=== PATIENT | female | born 1980 | race Caucasian/White ===

== ENCOUNTER 2020-07-31 08:45 | Outpatient (REF) | payer MEDICAID, SELFPAY ==
--- NOTE | 2020-07-31 | US_ITS ---
EXAMINATION: US OBSTETRICAL CLINICAL INFORMATION: 40-year-old at 19.0 weeks of gestation AMA Suspected anomaly COMPARISON: 07/02/2020 TECHNIQUE: Real-time transabdominal ultrasound was performed using C1-5 megahertz transducer. FINDINGS: A single, active, fetus is seen in transverse presentation. The placenta is anterior without previa, and the amniotic fluid volume is wnl. MEASUREMENTS: 1. Biparietal Diameter: 4.1 cm; 18.4 wks 2. Occipital Frontal Diameter: 5.5 cm 3. Head Circumference: 15.8 cm; 18.5 wks 4. Abdominal Circumference: 12.96 cm; 18.4 wks 5. Femur Length: 2.94 cm; 19.1 wks 6. Humerus Length: 2.79 cm; 19.0 wks 7. Tibia Length: 2.6 cm; 19.1 wks 8. Ulna Length: 2.65 cm; 19.5 wks 9. Lateral ventricle: 0.7 cm 10. Cerebellum: 1.99 cm; 20.2 wks 11. Cisterna Magna: 0.46 cm 12. Nuchal Fold: 3.16 mm 13. Heart Rate: 160 beats per minute Rt ovary: Unable to visualize Lt ovary: normal Cervical length 4.4 cm on T/A. GESTATIONAL AGE: 1. Established GA: 19.0 wks 2. GA from [facility]: 18.6 wks ESTIMATED DATE OF DELIVERY: 1. Established JOVANA: 12/25/2020 2. JOVANA from [facility]: 12/26/2020 ANATOMY: The visualized anatomy includes but not limited to: 1. Cranium: Normal 2. Intracranial anatomy: cavum septum pellucidi, lateral ventricles, choroid plexus, cerebellum, posterior fossa, third and fourth ventricles. 3. face: orbits, lip/palate, profile, nasal bone 4. Heart: four-chamber view of the heart, ventricular septum, foramen ovale, pulmonary vein, left and right outflow tracts, three-vessel view, 3 vessel trachea view, aortic and ductal arches, situs.. 5. Diaphragm: Normal 6. Abdominal wall: Normal 7. Cord Insertion: Normal 8. Spine: Cervical, thoracic, lumbar, sacral. 9. Stomach: Normal size and shape 10. Right Kidney: Normal 11. Left Kidney: Normal 12. 3 vessel cord: Normal 13. Upper extremity: Open hands, fifth digit. 14. Lower extremity: Tibia, fibula, bilateral feet. 15. Bladder: Normal 16. Genitalia: Male, patient aware IMPRESSION: 1. Single, living, intrauterine with appropriate biometry. 2. Normal survey DISCUSSION: I reviewed today's ultrasound findings. We discussed the limitations of ultrasound in diagnosing aneuploidy and other congenital abnormalities. I reviewed the differences between screening test and diagnostic test. Amniocentesis was discussed and declined. She was informed that the baseline incidence of congenital abnormalities is approximately 3-5%. Not all these conditions are diagnosable in utero. RECOMMENDATIONS: Thank you for allowing me to participate in her care. Visiting time 25 minutes. Majority of this visit was spent reviewing and discussing her care.
== END 2020-07-31 08:46 | disposition home or self-care (01) ==
LOC: HO.US 08:45
PROVIDERS: PCP Internal Medicine; Visit Provider Advanced Practice Midwife
DX: Z34.82 Encounter for supervision of other normal pregnancy, second trimester (principal)
CPT/HCPCS: 76811

== ENCOUNTER → 2020-08-03 08:52 | Outpatient (BNVA) | payer MEDICAID, SELFPAY | PROVIDERS: Visit Provider Advanced Practice Midwife | DX: Z76.89 Persons encountering health services in other specified circumstances (principal) ==

== ENCOUNTER → 2020-08-31 09:02 | Outpatient (BNVA) | payer MEDICAID, SELFPAY | PROVIDERS: Visit Provider Advanced Practice Midwife | DX: Z76.89 Persons encountering health services in other specified circumstances (principal) ==

== ENCOUNTER → 2020-09-07 09:38 | Outpatient (BNVA) | payer MEDICAID, SELFPAY | PROVIDERS: Visit Provider Advanced Practice Midwife | DX: Z23 Encounter for immunization (principal) | CPT/HCPCS: 90686 ==

== ENCOUNTER 2020-09-14 08:47 | Outpatient (REF) | payer MEDICAID, SELFPAY ==
[2020-09-14 12:01] LABS: Hematocrit 32.5 % (37-47); Hemoglobin 10.8 g/dl (12.0-16.0); Mean Corpuscular HGB Conc 33.2 g/dl (31.0-35.0); Mean Corpuscular Hemoglobin 30.8 pg (27.0-33.0); Mean Corpuscular Volume 92.6 fL (80-98); Mean Platelet Volume 10.1 fL (9.4-12.3); Platelet Count 186 X10*3/uL (160-400); Red Blood Count 3.51 X10*6/uL (4.20-5.50); Red Cell Distribution Width 13.4 % (11.0-16.0); White Blood Count 10.9 X10*3/uL (4.8-10.8)
[2020-09-14 12:30] LABS: Glucose 1 Hour PP 50gm Dose 145 mg/dL (60-140)
[2020-09-14 12:39] LABS: HIV AB/AG Nonreactive (Nonreactive); HIV Num 1 0.13 S/CO (0.00-0.99)
[2020-09-14 12:45] LABS: Syphilis Screen Nonreactive (Nonreactive)
[2020-09-14 14:02] LABS: CT PCR NOT DETECTED (Not Detect.); NG PCR NOT DETECTED (Not Detect.)
== END 2020-09-14 08:48 | disposition home or self-care (01) ==
LOC: HO.LAB 08:47
PROVIDERS: PCP Internal Medicine; Visit Provider Advanced Practice Midwife
DX: Z34.80 Encounter for supervision of other normal pregnancy, unspecified trimester (principal)
CPT/HCPCS: 36415; 85027; 86780; 87389; 87491; 87591

== ENCOUNTER 2020-09-17 08:41 | Outpatient (REF) | payer MEDICAID, SELFPAY ==
[2020-09-17 10:19] LABS: Glucose Fasting 72 mg/dL (60-99)
[2020-09-17 10:57] LABS: Glucose 1 Hour 194 mg/dL
[2020-09-17 12:20] LABS: Glucose 2 Hour 204 mg/dL
[2020-09-17 12:54] LABS: Glucose 3 Hour 148 mg/dL
== END 2020-09-17 08:42 | disposition home or self-care (01) ==
LOC: HO.LAB 08:41
PROVIDERS: Visit Provider Advanced Practice Midwife
DX: O99.810 Abnormal glucose complicating pregnancy (principal); O09.519 Supervision of elderly primigravida, unspecified trimester; Z3A.00 Weeks of gestation of pregnancy not specified
CPT/HCPCS: 82951

== ENCOUNTER → 2020-09-18 11:37 | Outpatient (BNVA) | payer MEDICAID, SELFPAY | PROVIDERS: Visit Provider Advanced Practice Midwife | DX: Z76.89 Persons encountering health services in other specified circumstances (principal) ==

== ENCOUNTER → 2020-09-28 09:41 | Outpatient (BNVA) | payer MEDICAID, SELFPAY | PROVIDERS: Visit Provider Advanced Practice Midwife | DX: Z76.89 Persons encountering health services in other specified circumstances (principal) ==

== ENCOUNTER → 2020-10-12 09:38 | Outpatient (BNVA) | payer MEDICAID, SELFPAY | PROVIDERS: Visit Provider Advanced Practice Midwife | DX: O09.523 Supervision of elderly multigravida, third trimester (principal); Z3A.29 29 weeks gestation of pregnancy | CPT/HCPCS: 81003; 99212 ==

== ENCOUNTER → 2020-10-26 08:46 | Outpatient (BNVA) | payer MEDICAID, SELFPAY | PROVIDERS: Visit Provider Advanced Practice Midwife | DX: O24.419 Gestational diabetes mellitus in pregnancy, unspecified control (principal); O26.843 Uterine size-date discrepancy, third trimester | CPT/HCPCS: 81003; 99212 ==

== ENCOUNTER 2020-10-30 11:09 | Outpatient (REF) | payer MEDICAID, SELFPAY ==
--- NOTE | 2020-10-30 11:15 | US_ITS ---
EXAMINATION: OBSTETRICAL ULTRASOUND, Follow up HISTORY: 40-year-old at the 32.0 weeks of gestation AMA GDM A1 Size date discrepancy COMPARISON: 07/31/2020 TECHNIQUE: Real time transabdominal imaging with color and M-mode Doppler. PRESENTATION: Breech PLACENTA LOCATION: Anterior without previa AMNIOTIC FLUID: MAVERICK 17.6 MEASUREMENTS: 1. Biparietal Diameter: 8.1 cm; 32.5 wks 2. Head Circumference: 30.3 cm; 33.5 wks 3. Abdominal Circumference: 26.7 cm; 30.6 wks 4. Femur Length: 6.2 cm; 32.2 wks 5. Heart Rate: 149 beats per minute WEIGHT: EFW: 1806 grams (4 lbs 0 oz) -- 28 %. BIOPHYSICAL PROFILE: Motion: 2 Tone: 2 Breathin Amniotic Fluid: 2 Total score: 8/8 GESTATIONAL AGE: 1. Established GA: 32.0 wks 2. GA from [facility]: 32.3 wks ESTIMATED DATE OF DELIVERY: 1. Established JOVANA: 12/25/2020 2. JOVANA from [facility]: 12/22/2020 US/US OB follow up IMPRESSION: 1. A single active fetus is in breech presentation 2. Size equals dates 3. Reassuring biophysical profile I reviewed the ultrasound findings and gave her reassurance. The discussed the limitations of ultrasound and estimating weights. She reports the normal glucose control on diet. Her fastings are below 97. Majority of her postprandial values are less than 110. We reviewed the increased incidence of macrosomia and hypoglycemia with the suboptimally controlled maternal serum glucose. Continue weekly testing for AMA. Thank you very much for this referral. Visiting time 30 minutes. (6,17, 7)
== END 2020-10-30 11:10 | disposition home or self-care (01) ==
LOC: HO.US 11:09
PROVIDERS: Visit Provider Advanced Practice Midwife
DX: O26.843 Uterine size-date discrepancy, third trimester (principal); O24.419 Gestational diabetes mellitus in pregnancy, unspecified control; O09.523 Supervision of elderly multigravida, third trimester; Z3A.32 32 weeks gestation of pregnancy
CPT/HCPCS: 76816

== ENCOUNTER → 2020-11-03 10:31 | Outpatient (BNVA) | payer MEDICAID, SELFPAY | PROVIDERS: Visit Provider Advanced Practice Midwife | DX: O09.899 Supervision of other high risk pregnancies, unspecified trimester (principal); O36.8390 Maternal care for abnormalities of the fetal heart rate or rhythm, unspecified trimester, not applicable or unspecified | CPT/HCPCS: 59025; 81003; 99212 ==

== ENCOUNTER 2020-11-03 11:28 | Outpatient (REF) | payer MEDICAID, SELFPAY ==
--- NOTE | 2020-11-03 11:32 | US_ITS ---
EXAMINATION: US OBSTETRICAL (BIOPHYSICAL PROFILE) CLINICAL INFORMATION: Deceleration on NST. Gestational diabetes. COMPARISON: Obstetrical ultrasound 10/30/2020, 07/31/2020 TECHNIQUE: Ultrasound of the pelvis is performed. Biophysical profile is performed over 30 minutes with assessment of breathing, gross body movement, tone, and qualitative amniotic fluid volume. Each matrix is scored 0 or 2, depending if the metric is present. Maximum total score possible is 8. Examination is not intended to assess for anomalies. FINDINGS: POSITION: Cephalic PLACENTA: Anterior AMNIOTIC FLUID INDEX: 13.8 cm CARDIAC ACTIVITY: 129 beats per minute BIOPHYSICAL PROFILE: Motion: 2 Tone: 2 Breathin Amniotic Fluid: 2 Total score: 8 US/US OB biophysical profile IMPRESSION: 1. Single intrauterine gestation in cephalic position with anterior placenta. 2. Total biophysical score is 8 (scale 0-8). 3. Amniotic fluid index 13.8 cm. 4. cardiac activity 129 beats per minute.
== END 2020-11-03 11:29 | disposition home or self-care (01) ==
LOC: HO.US 11:28
PROVIDERS: Visit Provider Advanced Practice Midwife
DX: O09.899 Supervision of other high risk pregnancies, unspecified trimester (principal)
CPT/HCPCS: 76819

== ENCOUNTER 2020-11-06 09:23 | Outpatient (REF) | payer MEDICAID, SELFPAY ==
--- NOTE | 2020-11-06 09:26 | US_ITS ---
EXAMINATION: US OBSTETRICAL (BIOPHYSICAL PROFILE) CLINICAL INFORMATION: 40-year-old at 33.0 weeks of gestation AMA GDM A1 COMPARISON: 11/03/2020 TECHNIQUE: Biophysical profile is performed over 30 minutes with assessment of breathing, gross body movement, tone, and qualitative amniotic fluid volume. FINDINGS: POSITION: Cephalic PLACENTA: Anterior without previa AMNIOTIC FLUID INDEX: 15.1 cm CARDIAC ACTIVITY: 143 beats per minute BIOPHYSICAL PROFILE: Motion: 2 Tone: 2 Breathin Amniotic Fluid: 2 The total biophysical score is 8/8 US/US OB biophysical profile IMPRESSION: 1. Single intrauterine gestation in vertex position. 2. Reassuring BPP and MAVERICK Patient informs me that her fasting values are in the 80s. Her highest post prandial value was 160 but majority are in the 110-120 range. She is to continue weekly testing. Thank you for allowing me to participate in her care. Total time: 15 (3,5,7)
== END 2020-11-06 09:24 | disposition home or self-care (01) ==
LOC: HO.US 09:23
PROVIDERS: Visit Provider Advanced Practice Midwife
DX: O09.523 Supervision of elderly multigravida, third trimester (principal); O24.419 Gestational diabetes mellitus in pregnancy, unspecified control; Z3A.33 33 weeks gestation of pregnancy
CPT/HCPCS: 76819

== ENCOUNTER → 2020-11-10 10:44 | Outpatient (BNVA) | payer MEDICAID, SELFPAY | PROVIDERS: Visit Provider Obstetrics & Gynecology | DX: O09.523 Supervision of elderly multigravida, third trimester (principal) | CPT/HCPCS: 59025; 76819; 99212 ==

== ENCOUNTER 2020-11-10 12:19 | Outpatient (REF) | payer MEDICAID, SELFPAY ==
--- NOTE | 2020-11-10 12:22 | US_ITS ---
EXAMINATION: US OBSTETRICAL (BIOPHYSICAL PROFILE) CLINICAL INFORMATION: O99.810 - Abnormal glucose complicating . Gestation approximately 33 weeks. COMPARISON: Ultrasound biophysical profile 11/06/2020, 11/03/2020 TECHNIQUE: Ultrasound of the pelvis is performed. Biophysical profile is performed over 30 minutes with assessment of breathing, gross body movement, tone, and qualitative amniotic fluid volume. Each matrix is scored 0 or 2, depending if the metric is present. Maximum total score possible is 8. Examination is not intended to assess for anomalies. FINDINGS: POSITION: Cephalic PLACENTA: Anterior AMNIOTIC FLUID INDEX: 17.3 cm CARDIAC ACTIVITY: 144 beats per minute BIOPHYSICAL PROFILE: Motion: 2 Tone: 2 Breathin Amniotic Fluid: 2 Total score: 8 US/US OB biophysical profile IMPRESSION: 1. Single intrauterine gestation in cephalic position with anterior placenta. 2. Total biophysical score is 8 (scale 0-8). 3. Amniotic fluid index 17.3 cm. 4. cardiac activity 144 beats per minute.
== END 2020-11-10 12:20 | disposition home or self-care (01) ==
LOC: HO.US 12:19
PROVIDERS: Visit Provider Obstetrics & Gynecology
DX: O09.529 Supervision of elderly multigravida, unspecified trimester (principal); O24.419 Gestational diabetes mellitus in pregnancy, unspecified control; O09.899 Supervision of other high risk pregnancies, unspecified trimester
CPT/HCPCS: 76819

== ENCOUNTER 2020-11-13 09:25 | Outpatient (REF) | payer MEDICAID, SELFPAY ==
--- NOTE | 2020-11-13 09:28 | US_ITS ---
EXAMINATION: US OBSTETRICAL (BIOPHYSICAL PROFILE) CLINICAL INFORMATION: 40-year-old at the 34.0 weeks of gestation AMA GDM A1 COMPARISON: 11/10/2020 TECHNIQUE: Biophysical profile is performed over 30 minutes with assessment of breathing, gross body movement, tone, and qualitative amniotic fluid volume. FINDINGS: POSITION: Cephalic PLACENTA: Anterior AMNIOTIC FLUID INDEX: 16.8 cm CARDIAC ACTIVITY: 147 beats per minute BIOPHYSICAL PROFILE: Motion: 2 Tone: 2 Breathin Amniotic Fluid: 2 The total biophysical score is 8/8 US/US OB biophysical profile IMPRESSION: 1. Single intrauterine gestation in vertex position. 2. Reassuring BPP and MAVERICK Patient reports that her glycemic control is excellent on her current diet. She is to continue weekly testing. Thank you for allowing me to participate in her care.
== END 2020-11-13 09:26 | disposition home or self-care (01) ==
LOC: HO.US 09:25
PROVIDERS: Visit Provider Advanced Practice Midwife
DX: O24.419 Gestational diabetes mellitus in pregnancy, unspecified control (principal); O09.523 Supervision of elderly multigravida, third trimester; Z3A.34 34 weeks gestation of pregnancy
CPT/HCPCS: 76819

== ENCOUNTER → 2020-11-17 12:50 | Outpatient (BNVA) | payer MEDICAID, SELFPAY | PROVIDERS: Visit Provider Advanced Practice Midwife | DX: O24.419 Gestational diabetes mellitus in pregnancy, unspecified control (principal) | CPT/HCPCS: 59025; 99212 ==

== ENCOUNTER 2020-11-20 09:25 | Outpatient (REF) | payer MEDICAID, SELFPAY ==
--- NOTE | ~2020-11-20 | US_ITS ---
EXAMINATION: OBSTETRICAL ULTRASOUND, Follow up HISTORY: 40-year-old at the 35.0 weeks of gestation Gestational diabetes on metformin Size date discrepancy testing COMPARISON: 11/13/2020 TECHNIQUE: Real time transabdominal imaging with color and M-mode Doppler. PRESENTATION: Vertex PLACENTA LOCATION: Anterior without previa AMNIOTIC FLUID: MAVERICK 12.5 cm MEASUREMENTS: 1. Biparietal Diameter: 8.6 cm; 34.6 wks 2. Head Circumference: 31.5 cm; 35.3 wks 3. Abdominal Circumference: 31.0 cm; 35.0 wks 4. Femur Length: 6.74 cm; 34.5 wks 5. Heart Rate: 143 beats per minute WEIGHT: EFW: 2565 grams (5 lbs 10 oz) -- 46 %. BIOPHYSICAL PROFILE: Motion: 2 Tone: 2 Breathin Amniotic Fluid: 2 Total score: 8/8 GESTATIONAL AGE: 1. Established GA: 35.0 wks 2. GA from [facility]: 35.0 wks ESTIMATED DATE OF DELIVERY: 1. Established JOVANA: 12/25/2020 2. JOVANA from [facility]: 12/25/2020 US/US OB follow up IMPRESSION: 1. A single active fetus is in vertex presentation 2. Size equals dates 3. Reassuring biophysical profile with normal amniotic fluid index. She informs me that the she is currently on metformin 500 mg by mouth every morning. Her glycemic control continues to be excellent. I reassured her that there is no evidence of macrosomia or polyhydramnios. I reviewed the clinical consequences of the poorly controlled maternal serum glucose in . She is scheduled for weekly NST/BPP. Thank you very much for this referral. Visiting time 30 minutes. Majority of this visit was spent reviewing and coordinating her care.
== END 2020-11-20 09:26 | disposition home or self-care (01) ==
LOC: HO.US 09:25
PROVIDERS: Visit Provider Advanced Practice Midwife
DX: O24.419 Gestational diabetes mellitus in pregnancy, unspecified control (principal); O09.519 Supervision of elderly primigravida, unspecified trimester
CPT/HCPCS: 76816

== ENCOUNTER → 2020-11-24 13:53 | Outpatient (BNVA) | payer MEDICAID, SELFPAY | PROVIDERS: Visit Provider Obstetrics & Gynecology | DX: O24.419 Gestational diabetes mellitus in pregnancy, unspecified control (principal) | CPT/HCPCS: 59025; 81003; 99212 ==

== ENCOUNTER 2020-11-27 09:49 | Outpatient (REF) | payer MEDICAID, SELFPAY ==
--- NOTE | ~2020-11-27 | US_ITS ---
EXAMINATION: US OBSTETRICAL (BIOPHYSICAL PROFILE) CLINICAL INFORMATION: 40-year-old at 36.0 weeks of gestation Gestational diabetes on metformin testing AMA COMPARISON: 11/20/2020 TECHNIQUE: Biophysical profile is performed over 30 minutes with assessment of breathing, gross body movement, tone, and qualitative amniotic fluid volume. FINDINGS: POSITION: Cephalic PLACENTA: Anterior without previa AMNIOTIC FLUID INDEX: 13.5 cm CARDIAC ACTIVITY: 132 beats per minute BIOPHYSICAL PROFILE: Motion: 2 Tone: 2 Breathin Amniotic Fluid: 2 The total biophysical score is 8/8 US/US OB biophysical profile IMPRESSION: 1. Single intrauterine gestation in vertex position. 2. Reassuring BPP and MAVERICK Patient reports that her glycemic control is the excellent. She is to continue weekly testing. Thank you for allowing me to participate in her care.
== END 2020-11-27 09:50 | disposition home or self-care (01) ==
LOC: HO.US 09:49
PROVIDERS: Visit Provider Advanced Practice Midwife
DX: O24.415 Gestational diabetes mellitus in pregnancy, controlled by oral hypoglycemic drugs (principal); O09.513 Supervision of elderly primigravida, third trimester; Z3A.36 36 weeks gestation of pregnancy
CPT/HCPCS: 76819

== ENCOUNTER 2020-12-02 12:44 | Outpatient (REF) | payer MEDICAID, SELFPAY ==
[2020-12-04 14:56] LABS: C. trachomatis RNA TMA NOT DETECTED (NOT DETECTED); N. gonorrhoeae RNA TMA NOT DETECTED (NOT DETECTED)
== END 2020-12-02 12:45 | disposition home or self-care (01) ==
LOC: HO.LAB 12:44
PROVIDERS: Visit Provider Advanced Practice Midwife
DX: O09.893 Supervision of other high risk pregnancies, third trimester (principal); O09.523 Supervision of elderly multigravida, third trimester; O24.415 Gestational diabetes mellitus in pregnancy, controlled by oral hypoglycemic drugs; O36.8330 Maternal care for abnormalities of the fetal heart rate or rhythm, third trimester, not applicable or unspecified; Z3A.36 36 weeks gestation of pregnancy
CPT/HCPCS: 36415; 59025; 76819; 81003; 87081; 87147; 87491; 87591; 99212

== ENCOUNTER 2020-12-02 14:32 | Outpatient (REF) | payer MEDICAID, SELFPAY ==
--- NOTE | ~2020-12-02 | US_ITS ---
EXAMINATION: US OBSTETRICAL (BIOPHYSICAL PROFILE) CLINICAL INFORMATION: Maternal gestational diabetes. Gestation 36 weeks 5 days. COMPARISON: Ultrasound biophysical profile 11/27/2020, 11/20/2020, 11/13/2020. TECHNIQUE: Ultrasound of the pelvis is performed. Biophysical profile is performed over 30 minutes with assessment of breathing, gross body movement, tone, and qualitative amniotic fluid volume. Each matrix is scored 0 or 2, depending if the metric is present. Maximum total score possible is 8. Examination is not intended to assess for anomalies. FINDINGS: POSITION: Cephalic PLACENTA: Anterior AMNIOTIC FLUID INDEX: 15.2 cm CARDIAC ACTIVITY: 144 beats per minute BIOPHYSICAL PROFILE: Motion: 2 Tone: 2 Breathin Amniotic Fluid: 2 Total score: 8 US/US OB biophysical profile IMPRESSION: 1. Single intrauterine gestation in cephalic position with anterior placenta. 2. Total biophysical score is 8 (scale 0-8). 3. Amniotic fluid index 15.2 cm. 4. cardiac activity 144 beats per minute.
== END 2020-12-02 14:33 | disposition home or self-care (01) ==
LOC: HO.US 14:32
PROVIDERS: Visit Provider Advanced Practice Midwife
DX: O09.529 Supervision of elderly multigravida, unspecified trimester (principal); O09.899 Supervision of other high risk pregnancies, unspecified trimester; O24.415 Gestational diabetes mellitus in pregnancy, controlled by oral hypoglycemic drugs; O36.8390 Maternal care for abnormalities of the fetal heart rate or rhythm, unspecified trimester, not applicable or unspecified
CPT/HCPCS: 76819

== ENCOUNTER 2020-12-04 09:49 | Outpatient (REF) | payer MEDICAID, SELFPAY ==
--- NOTE | ~2020-12-04 | US_ITS ---
EXAMINATION: OBSTETRICAL ULTRASOUND, Follow up HISTORY: 40-year-old at 37.0 weeks GDM on metformin Size date discrepancy AMA COMPARISON: 11/27/2020 TECHNIQUE: Real time transabdominal imaging with color and M-mode Doppler. PRESENTATION: Vertex PLACENTA LOCATION: Anterior without previa AMNIOTIC FLUID: MAVERICK 11.9 cm MEASUREMENTS: 1. Biparietal Diameter: 9.11 cm; 37.0 wks 2. Head Circumference: 33.5 cm; 38.3 wks 3. Abdominal Circumference: 34.39 cm; 38.3 wks 4. Femur Length: 7.22 cm; 37.0 wks 5. Heart Rate: 142 beats per minute WEIGHT: EFW: 3322 grams (7 lbs 5 oz) -- 78 %. BIOPHYSICAL PROFILE: Motion: 2 Tone: 2 Breathin Amniotic Fluid: 2 Total score: 8/8 GESTATIONAL AGE: 1. Established GA: 37.0 wks 2. GA from [facility]: 37.5 wks ESTIMATED DATE OF DELIVERY: 1. Established JOVANA: 12/25/2020 2. JOVANA from [facility]: 12/20/2020 US/US OB follow up IMPRESSION: 1. A single active fetus is in vertex presentation 2. Size equals dates 3. Reassuring biophysical profile with normal amniotic fluid index Patient reports that her glycemic control is stable on metformin 500 mg q.d. States that she ran out of the glucose strips and was not able to monitor her glucose values last week. Week before, fasting values were in the 70s to 80s. Postprandial values are within normal limits. I reviewed today's ultrasound findings and gave her reassurance. She is to continue weekly BPP and NST. Thank you very much for this referral. Visiting time 25 minutes. Majority of this visit was spent reviewing and coordinating her care.
== END 2020-12-04 09:50 | disposition home or self-care (01) ==
LOC: HO.US 09:49
PROVIDERS: Visit Provider Advanced Practice Midwife
DX: O24.415 Gestational diabetes mellitus in pregnancy, controlled by oral hypoglycemic drugs (principal); O09.513 Supervision of elderly primigravida, third trimester; Z3A.37 37 weeks gestation of pregnancy
CPT/HCPCS: 76816

== ENCOUNTER → 2020-12-08 10:38 | Outpatient (BNVA) | payer MEDICAID, SELFPAY | PROVIDERS: Visit Provider Advanced Practice Midwife | DX: O99.820 Streptococcus B carrier state complicating pregnancy (principal); O24.415 Gestational diabetes mellitus in pregnancy, controlled by oral hypoglycemic drugs; O09.523 Supervision of elderly multigravida, third trimester; O26.843 Uterine size-date discrepancy, third trimester; O99.113 Other diseases of the blood and blood-forming organs and certain disorders involving the immune mechanism complicating pregnancy, third trimester; D69.6 Thrombocytopenia, unspecified; O92.29 Other disorders of breast associated with pregnancy and the puerperium; Z3A.37 37 weeks gestation of pregnancy | CPT/HCPCS: 59025; 81003; 99212 ==

== ENCOUNTER 2020-12-08 11:58 | Outpatient (REF) | payer MEDICAID, SELFPAY ==
--- NOTE | ~2020-12-08 | US_ITS ---
EXAMINATION: US OBSTETRICAL (BIOPHYSICAL PROFILE) CLINICAL INFORMATION: Gestational diabetes COMPARISON: Previous exams most recent 12/04/2020 TECHNIQUE: Ultrasound of the pelvis is performed. Biophysical profile is performed over 30 minutes with assessment of breathing, gross body movement, tone, and qualitative amniotic fluid volume. Each matrix is scored 0 or 2, depending if the metric is present. Maximum total score possible is 8. Examination is not intended to assess for anomalies. FINDINGS: POSITION: Cephalic PLACENTA: Anterior. Grade 1. AMNIOTIC FLUID INDEX: 13.8 cm CARDIAC ACTIVITY: 139 beats per minute BIOPHYSICAL PROFILE: Motion: 2 Tone: 2 Breathin Amniotic Fluid: 2 Total score: 8 US/US OB biophysical profile IMPRESSION: 1. Single intrauterine gestation in cephalic position with anterior placenta. 2. Total biophysical score is 8 (scale 0-8). 3. Amniotic fluid index 13.8 cm. 4. cardiac activity 139 beats per minute.
== END 2020-12-08 11:59 | disposition home or self-care (01) ==
LOC: HO.US 11:58
PROVIDERS: Visit Provider Advanced Practice Midwife
DX: O09.899 Supervision of other high risk pregnancies, unspecified trimester (principal); O09.529 Supervision of elderly multigravida, unspecified trimester; O24.415 Gestational diabetes mellitus in pregnancy, controlled by oral hypoglycemic drugs; O36.8390 Maternal care for abnormalities of the fetal heart rate or rhythm, unspecified trimester, not applicable or unspecified
CPT/HCPCS: 76819

== ENCOUNTER 2020-12-11 09:42 | Outpatient (REF) | payer MEDICAID, SELFPAY ==
--- NOTE | ~2020-12-11 | US_ITS ---
EXAMINATION: US OBSTETRICAL (BIOPHYSICAL PROFILE) CLINICAL INFORMATION: 40-year-old at 38.0 weeks of gestation Gestational diabetes on metformin COMPARISON: 12/08/2020 TECHNIQUE: Biophysical profile is performed over 30 minutes with assessment of breathing, gross body movement, tone, and qualitative amniotic fluid volume. FINDINGS: POSITION: Cephalic PLACENTA: Anterior without previa AMNIOTIC FLUID INDEX: 12.7 cm CARDIAC ACTIVITY: 158 beats per minute BIOPHYSICAL PROFILE: Motion: 2 Tone: 2 Breathin Amniotic Fluid: 2 The total biophysical score is 8/8 US/US OB biophysical profile IMPRESSION: 1. Single intrauterine gestation in vertex position. 2. Reassuring BPP and MAVERICK Patient reports doing well on metformin 500 mg daily at bedtime. Reports that her morning fasting values are in the 80s. Her postprandials are within normal range. She is scheduled for delivery at approximately 39 weeks of gestation. Thank you for allowing me to participate in her care. This note was generated with a voice recognition program. Please excuse any errors which may have been overlooked during my review of this note. Sometimes these errors may affect the content or meaning of a given sentence.
== END 2020-12-11 09:43 | disposition home or self-care (01) ==
LOC: HO.US 09:42
PROVIDERS: Visit Provider Advanced Practice Midwife
DX: O24.415 Gestational diabetes mellitus in pregnancy, controlled by oral hypoglycemic drugs (principal); O09.513 Supervision of elderly primigravida, third trimester; Z3A.38 38 weeks gestation of pregnancy
CPT/HCPCS: 76819

== ENCOUNTER → 2020-12-15 10:44 | Outpatient (BNVA) | payer MEDICAID, SELFPAY | PROVIDERS: Visit Provider Advanced Practice Midwife | DX: O24.415 Gestational diabetes mellitus in pregnancy, controlled by oral hypoglycemic drugs (principal); O99.820 Streptococcus B carrier state complicating pregnancy; O09.523 Supervision of elderly multigravida, third trimester; Z3A.38 38 weeks gestation of pregnancy | CPT/HCPCS: 59025; 81003; 99212 ==

== ENCOUNTER 2021-01-18 11:30 | Outpatient (REF) | payer MEDICAID, SELFPAY ==
--- NOTE | ~2021-01-18 | US_ITS ---
EXAMINATION: US DIAGNOSTIC ULTRASOUND BREAST, LEFT CLINICAL INFORMATION: Follow-up hypoechoic mass left breast 11:00 position initially noted at baseline screening. Patient approximately one month . COMPARISON: Mammography 12/12/2019, 12/19/2019; targeted left breast ultrasound 12/19/2019 and 07/02/2020. TECHNIQUE: Ultrasound left breast is targeted to the 11:00 position anterior breast. Grayscale imaging and color Doppler are performed without and with harmonics. FINDINGS: There is an irregular shaped strongly hypoechoic mass 11:00 position 2 cm from nipple with overall dimensions approximately 1.4 x 1.0 x 1.2 cm. This compares with original measurements 1.1 x 0.5 x 0.8 cm. There is no increased through-transmission of sound. There is some scattered faint posterior shadowing suggested on some of the images. Results are discussed with patient at time of visit. Ultrasound-guided core sampling is recommended. Patient is currently breast feeding, approximately 1 month post . Patient was advised to pump breast 30 minutes prior to biopsy appointment. US/US breast LT limited IMPRESSION: Irregular shaped hypoechoic mass 11:00 position anterior left breast slightly increased in size from initial ultrasound 12/19/2019. ASSESSMENT: BI-RADS 4: Suspicious RECOMMENDATION: Ultrasound-guided core biopsy left breast.
== END 2021-01-18 11:31 | disposition home or self-care (01) ==
LOC: HO.MAMMO 11:30
PROVIDERS: Visit Provider Advanced Practice Midwife
DX: N63.24 Unspecified lump in the left breast, lower inner quadrant (principal); Z39.2 Encounter for routine postpartum follow-up
CPT/HCPCS: 76642

== ENCOUNTER 2021-01-26 09:05 | Outpatient (REF) | payer MEDICAID, SELFPAY ==
--- NOTE | ~2021-01-26 | MM_ITS ---
EXAMINATION: ULTRASOUND GUIDED CORE BIOPSY BREAST, LEFT POST PROCEDURE DIGITAL MAMMOGRAM, LEFT CLINICAL INFORMATION: Irregular shaped hypoechoic mass 11:00 anterior left breast. Lactating patient, 1-2 months post .. COMPARISON: Ultrasound left breast 01/18/2021, 07/02/2020, 12/19/2019; mammography 12/19/2019, 12/12/2019. FINDINGS: Proper informed consent is obtained from the patient after discussion of the procedure, potential risks and complications, and alternatives. Patient was given an opportunity for questions. The patient appeared to understand. The patient consented to the procedure and signed the consent form. GUIDANCE: Ultrasound-guided; aseptic technique. LESION: Irregular hypoechoic mass 11:00 position 1.4 cm in greatest dimension. Differential considerations include lactating adenoma, fibroadenoma, PASH, other. APPROACH: Oblique mediolateral. ANESTHESIA: 10 mL 1% lidocaine. DERMATOTOMY: Single skin jose m dermatotomy performed. NEEDLE: 14-gauge Achieve core biopsy device with 13.5-gauge co-axial guide needle. CORES: 4. CLIP: HydroMARK; shape: open coil. POST PROCEDURE UNILATERAL DIGITAL MAMMOGRAM: The post biopsy mammogram is performed in separate room using separate digital mammography equipment from the biopsy procedure. CC and ML views are obtained. The breasts are heterogeneously dense, which may obscure small masses (breast composition category: c). The clip marker is in position. No gross hematoma. The patient tolerated the procedure well. No immediate complications. Home instructions reviewed with the patient. Patient advised for additional left breast pumping next 24 hours to decrease possibility of post procedure milk fistula. Final pathology results are pending. MM/MM diagnostic mammo unilat LT IMPRESSION: 1. Status post ultrasound-guided core biopsy left breast. 2. Clip placed: HydroMARK; shape: open coil. 3. Pathology pending. An addendum report will be issued.
== END 2021-01-26 09:06 | disposition home or self-care (01) ==
LOC: HO.MAMMO 09:05
PROVIDERS: Visit Provider Surgery
DX: R92.8 Other abnormal and inconclusive findings on diagnostic imaging of breast (principal)
CPT/HCPCS: 19083; 77065; 88305; 99202; A4648

== ENCOUNTER → 2021-01-29 10:47 | Outpatient (BNVA) | payer MEDICAID, SELFPAY | PROVIDERS: PCP Internal Medicine; Visit Provider Surgery | DX: D48.60 Neoplasm of uncertain behavior of unspecified breast (principal) | CPT/HCPCS: 99212 ==

== ENCOUNTER → 2021-02-11 09:10 | Outpatient (BNVA) | payer MEDICAID, SELFPAY | PROVIDERS: PCP Internal Medicine; Visit Provider Advanced Practice Midwife | DX: Z39.2 Encounter for routine postpartum follow-up (principal); Z13.31 Encounter for screening for depression; Z39.1 Encounter for care and examination of lactating mother | CPT/HCPCS: 99212 ==

== ENCOUNTER 2021-08-16 10:39 | Outpatient (REF) | payer MEDICAID, SELFPAY ==
[2021-08-17 11:10] LABS: BV Int Neg Control Negative (Negative); BV Int Pos Control Positive (Positive)
== END 2021-08-16 10:40 | disposition home or self-care (01) ==
LOC: HO.LAB 10:39
PROVIDERS: PCP Internal Medicine; Visit Provider Advanced Practice Midwife
DX: Z11.3 Encounter for screening for infections with a predominantly sexual mode of transmission (principal); N76.0 Acute vaginitis
CPT/HCPCS: 87480; 87510; 87660; 99212

== ENCOUNTER 2022-04-07 10:20 | Outpatient (REF) | payer MEDICAID, SELFPAY ==
[2022-04-07 14:02] LABS: CT PCR NOT DETECTED (Not Detect.); NG PCR NOT DETECTED (Not Detect.)
[2022-04-08 09:16] LABS: BV Int Neg Control Negative (Negative); BV Int Pos Control Positive (Positive)
== END 2022-04-07 10:21 | disposition home or self-care (01) ==
LOC: HO.LAB 10:20
PROVIDERS: Visit Provider Advanced Practice Midwife
DX: Z01.419 Encounter for gynecological examination (general) (routine) without abnormal findings (principal); Z11.3 Encounter for screening for infections with a predominantly sexual mode of transmission
CPT/HCPCS: 87480; 87491; 87510; 87591; 87660

== ENCOUNTER 2022-05-16 09:47 | Outpatient (REF) | payer MEDICAID, SELFPAY ==
--- NOTE | ~2022-05-16 | MM_ITS ---
EXAMINATION: MM SCREENING DIGITAL BREAST TOMOSYNTHESIS, BILATERAL CLINICAL INFORMATION: Screening. Asymptomatic. Ultrasound-guided left breast biopsy 01/26/2021 (fibroadenoma lesion, differential diagnosis between fibroadenoma and phylloides). Lactating patient, breast feeds once a day. The lifetime risk of breast cancer based on the Tyrer-Cuzick Model is 11%. COMPARISON: Mammography: 10/28/2020, 12/19/2019, 08/11/2020 (baseline) TECHNIQUE: Digital breast tomosynthesis is performed in both the craniocaudal and mediolateral oblique views along with computer-aided detection (CAD). Synthesized 2D images are generated from the tomosynthesis. Additional left MLO view is provided. FINDINGS: The breasts are heterogeneously dense, which may obscure small masses (ACR BI-RADS breast composition Category c). The breasts are symmetrically dense when compared with prior mammography. There is a biopsy clip marker mid upper inner left breast corresponding to the fibroepithelial lesion. The mass is not clearly visualized by mammography. There is no interval focal parenchymal abnormality. No architectural abnormality. No abnormal calcifications. The axilla and skin contours are unremarkable. Patient due for follow-up appointment with surgeon for management of the fibroepithelial lesion. Excisional biopsy was suggested for complete characterization of the lesion in 2020. If surgery is not contemplated, then follow-up ultrasound to reassess size would be recommended. Results called to nuclear medical technologist (Kari) for Dr. Colunga on 05/17/2022. MM/MM tomosynthesis screening BI IMPRESSION: -Breast symmetrically denser when compared with prior exams. -No focal mammographic abnormality. -Fibroepithelial lesion left breast, biopsy was 01/26/2021, excision was recommended. ASSESSMENT: BI-RADS 0: Incomplete - Need Additional Evaluation RECOMMENDATION: -Surgical consult for management of the known fibroepithelial lesion left breast. -If surgery is not contemplated, then follow-up left breast ultrasound is recommended to reassess size. This patient's information was entered into a reminder system with a target due date for their next breast imaging.
== END 2022-05-16 09:48 | disposition home or self-care (01) ==
LOC: HO.MAMMO 09:47
PROVIDERS: Visit Provider Advanced Practice Midwife
DX: Z12.31 Encounter for screening mammogram for malignant neoplasm of breast (principal)
CPT/HCPCS: 77063; 77067

== ENCOUNTER 2022-07-29 13:01 | Outpatient (REF) | payer MEDICAID, SELFPAY ==
--- NOTE | ~2022-07-29 | US_ITS ---
EXAMINATION: US DIAGNOSTIC ULTRASOUND BREAST, LEFT CLINICAL INFORMATION: Reassess lump. COMPARISON: 05/16/2022 and studies dating back to 12/12/2019. TECHNIQUE: Ultrasound of the breast is performed with real-time bearden scale imaging and color Doppler. FINDINGS: At the 11 o'clock position, 2 cm from the nipple, there is again noted to be a hypoechoic and heterogeneous lesion measuring approximately 7 x 4 x 7 mm in size with a lobular contour. Previously this measured 1.4 x 1.0 x 1.2 cm in size. No distal sound shadowing is appreciated. No significant internal blood flow is seen. Lesion is wider than it is tall. Results are discussed with the patient at time of visit. US/US breast LT limited IMPRESSION: Left breast lesion 11 o'clock position, 2 cm from nipple, is smaller than on prior study. ASSESSMENT: BI-RADS 2: Benign. RECOMMENDATION: Routine annual mammography screening due in 12 months. Clinical follow up of the left breast. This patient's information was entered into a reminder system with a target due date for their next mammogram.
== END 2022-07-29 13:02 | disposition home or self-care (01) ==
LOC: HO.MAMMO 13:01
PROVIDERS: PCP Internal Medicine; Visit Provider Internal Medicine
DX: N63.22 Unspecified lump in the left breast, upper inner quadrant (principal)
CPT/HCPCS: 76642

== ENCOUNTER → 2023-02-10 09:47 | Outpatient (BNVA) | payer MEDICAID, SELFPAY | PROVIDERS: PCP Internal Medicine; Visit Provider Surgery | DX: D24.2 Benign neoplasm of left breast (principal) | CPT/HCPCS: 99212 ==

== ENCOUNTER → 2023-04-11 09:55 | Outpatient (BNVA) | payer MEDICAID, SELFPAY | PROVIDERS: PCP Internal Medicine; Visit Provider Advanced Practice Midwife ==

== ENCOUNTER → 2023-05-30 16:15 | Outpatient (BNV) | payer MEDICAID, SELFPAY | PROVIDERS: PCP Family Medicine; Visit Provider Radiology Diagnostic Radiology | DX: Z12.31 Encounter for screening mammogram for malignant neoplasm of breast (principal) | CPT/HCPCS: 77063; 77067 ==

== ENCOUNTER 2023-05-30 16:23 | Outpatient (REF) | payer MEDICAID, SELFPAY ==
--- NOTE | ~2023-05-30 | MM_ITS ---
EXAMINATION: MM SCREENING DIGITAL BREAST TOMOSYNTHESIS, BILATERAL CLINICAL INFORMATION: Screening. Asymptomatic. COMPARISON: Mammography: This study is compared with prior exams dating back to 2019. TECHNIQUE: Digital breast tomosynthesis is performed in both the craniocaudal and mediolateral oblique views along with computer-aided detection (CAD). Synthesized 2D images are generated from the tomosynthesis. FINDINGS: The breasts are heterogeneously dense, which may obscure small masses (ACR BI-RADS breast composition Category c). There are no significant masses, abnormal calcifications, or other abnormalities. There is a tissue marker present in the left breast from prior benign percutaneous biopsy. MM/MM tomosynthesis screening BI IMPRESSION: No mammographic evidence of malignancy. ASSESSMENT: BI-RADS BI-RADS 2 - Benign Findings RECOMMENDATION: Routine annual mammography screening. 1 year F/U This examination should not preclude the clinical evaluation of a suspicious palpable abnormality. This patient's information was entered into a reminder system with a target due date for their next mammogram.
== END 2023-05-30 16:24 | disposition home or self-care (01) ==
LOC: HO.MAMMO 16:23
PROVIDERS: PCP Family Medicine; Visit Provider Family Medicine
DX: Z12.31 Encounter for screening mammogram for malignant neoplasm of breast (principal)
CPT/HCPCS: 77063; 77067

== ENCOUNTER 2023-08-08 13:57 | Outpatient (AMB) | payer MEDICAID, SELFPAY ==
--- NOTE | 2023-08-08 14:00 | A.OFFVIS_ITS ---
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 Patient reports she was diagnosed with CTS about 2 years ago. She had an understanding that she was ge tting an injection for her right hand. 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 The patient reports she was diagnosed with carpal tunnel syndrome 2 years ago, in 2020. She states she is here for an injection in the right hand. The patient was referred to Orthopedics by her PCP Dr. Marjorie Bradford on 02/28/2023. She was diagnosed with CTS in 2019 after a NCT. She was recommend to brace at night and modify activities. [facility] Medical History Gestational diabetes Lactating mother Lump of left breast Surgical History H/O breast biopsy No history of previous surgery Family History Mother Lung cancer Maternal Grandmother Cancer of unknown origin Paternal Uncle Liver cancer Family/Other Bone cancer Social History Household Members: Spouse and Children Housing: House Alcohol intake: former Patient Tobacco Use Status: Never used Tobacco Sexual orientation: Straight/Heterosexual Gender identity: Female Female Reproductive History Menstrual Age of Menarche: 13 Review of Systems Const All systems reviewed & are unremarkable except as noted in HPI and below Physical Exam Const General: cooperative and no acute distress Orientation/consciousness: patient oriented x3 Resp Effort & Inspection: normal respiratory effort and able to speak in complete sentences Cardio Peripheral pulses: Peripheral pulses 2+ throughout Skin General skin exam: no rashes or lesions noted Neuro General: patient oriented x3 Extrem Other: Right hand: Normal to inspection. No ecchymosis, erythema, or edema. Able to perform full finger flexion, extension, abduction, adduction, finger cross, okay sign, and thumbs up without deficit. Able to make a closed fist. Negative Tinel?s in carpal tunnel and cubital tunnel. Capillary refill is brisk. Radial pulse intact. Assessment & Plan Assessment & Plan (1) Right carpal tunnel syndrome: Code(s): G56.01 - Carpal tunnel syndrome, right upper limb Plan Ms. Hazel is a 41-year-old right hand dominant female who presents in the office today, as a new patient, for an evaluation of right hand pain. The patient reports she was diagnosed with carpal tunnel syndrome 2 years ago, in 2020. She states she is here for an injection in the right hand. The patient was referred to Orthopedics by her PCP Dr. Marjorie Bradford on 02/28/2023. She was diagnosed with CTS in 2019 after a NCT. She was recommend to brace at night and modify activities. The patient will be referred for an EMG study. She reports numbness and tingling on a nightly bases. She also reports having numbness and tingling during the day occasionally and depending on her activities. Follow up will be after the EMG is obtained, or sooner if needed. Orders: Orders NE electromyogram (EMG) Today G56.01 - Carpal tunnel syndrome, right upper limb Patient Instructions: Scribed for Shanti Suggs PA-C by Porsche Triana medical records custodian, on 08/08/2023 at 2:00 pm, EST. Coding Level of Care Code New Pt Level 4 (30998) Diagnoses Right carpal tunnel syndrome G56.01
== END 2023-08-08 14:26 | disposition home or self-care (01) ==
PROVIDERS: PCP Family Medicine; Visit Provider Physician Assistant
DX: G56.01 Carpal tunnel syndrome, right upper limb (principal)
CPT/HCPCS: 99204

== ENCOUNTER → 2023-08-08 13:57 | Outpatient (BNVA) | payer MEDICAID, SELFPAY | PROVIDERS: PCP Family Medicine; Visit Provider Physician Assistant | DX: G56.01 Carpal tunnel syndrome, right upper limb (principal) | CPT/HCPCS: 99202; 99212 ==

== ENCOUNTER 2023-09-06 14:56 | Outpatient (REF) | payer MEDICAID, SELFPAY ==
--- NOTE | 2023-09-06 14:58 | EMG_ITS ---
Chief complaint: Right hand numbness and pain Reason for referral: Evaluate for Carpal Tunnel Syndrome Referred by: Shanti CHEEK Procedure done: Right upper extremity NCS/EMG Precautions and/or limitations: None The limb temperature was monitored continuously and remained between 32-36 degrees C during the performance of the NCS. Nerve Conduction Studies Anti Sensory Summary Table ?Stim Site NR Onset (ms) Norm Onset (ms) Peak (ms) Norm Peak (ms) O-P Amp (?V) Norm O-P Amp Site1 Site2 Delta-0 (ms) Dist (cm) Justin (m/s) Norm Justin (m/s) Right Median Anti Sensory (2nd Digit) Wrist ? 3.8 4.8 <3.6 25.7 >10 Wrist 2nd Digit 3.8 14.0 37 Right Radial Anti Sensory (Thumb) Forearm ? 1.4 2.0 <3.1 46.1 Forearm Thumb 1.4 0.0 Right Ulnar Anti Sensory (5th Digit) Wrist ? 2.3 3.0 <3.7 53.9 >15.0 Wrist 5th Digit 2.3 14.0 61 Motor Summary Table ?Stim Site NR Onset (ms) Norm Onset (ms) O-P Amp (mV) Norm O-P Amp iAmp (mV) Amp (1st) (%) Site1 Site2 Delta-0 (ms) Dist (cm) Justin (m/s) Norm Justin (m/s) Right Median Motor (Abd Poll Brev) Wrist ? 5.4 <3.9 14.3 >4.5 17.4 100.0 Elbow Wrist 3.7 21.0 57 >45 Elbow ? 9.1 14.0 17.2 97.9 Right Ulnar Motor (Abd Dig Minimi) Wrist ? 2.5 <3.0 8.6 >5 10.6 100.0 B Elbow Wrist 3.1 19.0 61 >45 B Elbow ? 5.6 8.7 11.1 101.2 A Elbow B Elbow 1.6 10.0 62 >45 A Elbow ? 7.2 8.6 11.0 100.0 EMG ?Side Muscle Nerve Root Ins Act Fibs Psw Amp Dur Poly Recrt Int Pat Comment Right FlexCarRad Median C6-7 Nml Nml Nml Nml Nml 0 Nml Complete Right Biceps Musculocut C5-6 Nml Nml Nml Nml Nml 0 Nml Complete Right Triceps Radial C6-7-8 Nml Nml Nml Nml Nml 0 Nml Complete Right Deltoid Axillary C5-6 Nml Nml Nml Nml Nml 0 Nml Complete Right Abd Poll Brev Median C8-T1 Nml Nml Nml Nml Nml 0 Nml Complete FINDINGS: Right median motor nerve showed prolonged distal latency, normal amplitude and normal conduction velocity. Right median sensory nerve showed prolonged peak latency. All other nerves tested were within normal. Concentric needle EMG was performed in selected muscles of the right upper extremity. Study did not reveal signs of electric abnormalities as shown in the table below. IMPRESSION: 1. This is an abnormal study. 2. There is electrodiagnostic evidence for right moderate-severe median neuropathy at the wrist, consistent with carpal tunnel syndrome. 3. There is no electrodiagnostic evidence for ulnar neuropathy, brachial plexopathy, or cervical radiculopathy. Thank you for your kind referral. Tyesha Rangel MD, BRET Board Certified, [place] [employer] and [employer] (ABPMR) Board Certified, [place] Board [employer] Electrodiagnostic [employer] (ABEM) [place] [id number] [facility]
== END 2023-09-06 14:57 | disposition home or self-care (01) ==
LOC: HO.NEURO 14:56
PROVIDERS: PCP Family Medicine; Visit Provider Physician Assistant
DX: G56.01 Carpal tunnel syndrome, right upper limb (principal)
CPT/HCPCS: 95886; 95909

== ENCOUNTER → 2023-09-06 14:58 | Outpatient (BNV) | payer MEDICAID, SELFPAY | PROVIDERS: PCP Family Medicine; Visit Provider Physical Medicine & Rehabilitation | DX: G56.11 Other lesions of median nerve, right upper limb (principal); G56.01 Carpal tunnel syndrome, right upper limb | CPT/HCPCS: 95886; 95909 ==

== ENCOUNTER 2023-11-14 09:12 | Outpatient (AMB) | payer SELFPAY ==
[2023-11-14 09:35] VITALS: BMI 23.6
--- NOTE | 2023-11-14 09:35 | A.OFFVIS_ITS ---
Intake Vital Signs 11/14/23 09:35 Height 5 ft 3 in Weight 133 lb BMI 23.6 Intake Visit Reasons: ov- Rt carpal tunnel syndrome follow up Intake Note: Leah 43 yr old year old female presents today for his EMG review. Last seen with Liza Moser who sent patient for an EMG review. Patient would like to discuss surgical intervention to be schedule around summer time. Allergies No Known Allergies [No Known Allergies*] Allergy (Verified 11/14/23 09:45) HPI ov- Rt carpal tunnel syndrome follow up HPI Details Alexia is a 43 year old right hand dominant woman who presents for a NCS review of her right hand numbness. She complains of numbness in the thumb, index, and middle fingers of her right hand. Symptoms intermittent, but daily, worse in the mornings or with activities such as cooking. She says she was first diagnosed with carpal tunnel syndrome a few years ago, but denies any prior treatment. She wears a wrist brace at night, which is helpful. She would like to discuss treatment options. 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 [facility] Medical History Gestational diabetes Lactating mother Lump of left breast Surgical History H/O breast biopsy No history of previous surgery Family History Mother Lung cancer Maternal Grandmother Cancer of unknown origin Paternal Uncle Liver cancer Family/Other Bone cancer Social History Household Members: Spouse and Children Housing: House Alcohol intake: former Patient Tobacco Use Status: Never used Tobacco Sexual orientation: Straight/Heterosexual Gender identity: Female Female Reproductive History Menstrual Age of Menarche: 13 Review of Systems Const All systems reviewed & are unremarkable except as noted in HPI and below Physical Exam Vital Signs: BMI result Body Mass Index 23.6 Const General: cooperative, healthy appearing and no acute distress Orientation/consciousness: patient oriented x3 HEENT Head: Yes normocephalic and Yes atraumatic Eyes EOM: EOMs intact bilaterally Resp Effort & Inspection: normal respiratory effort and able to speak in complete sentences Cardio Jugular venous distension: no JVD Skin General skin exam: turgor normal Rashes: no rashes Neuro General: patient oriented x3 Extrem Other: Evaluation of Upper Extremity: The patient is alert, oriented, and in no acute distress Neuro: Median, Ulnar, Radial nerves motor and sensory intact and sensation is normal to the tips of all digits No thenar or intrinsic wasting Good APB muscle belly firing and good finger cross Vascular: Cap refill brisk ROM: She can make a fist and extend all her digits Skin: No lacerations or abrasions. General: No Ecchymosis. No Erythema or evidence of infection. Nerve Conduction Study: IMPRESSION: 1. This is an abnormal study. 2. There is electrodiagnostic evidence for right moderate-severe median neuropathy at the wrist, consistent with carpal tunnel syndrome. 3. There is no electrodiagnostic evidence for ulnar neuropathy, brachial plexopathy, or cervical radiculopathy. Tyesha Rangel MD, BRET 09/06/23 Psych Appearance: grossly normal Affect: normal affect Attitude: cooperative Assessment & Plan Assessment & Plan (1) Right carpal tunnel syndrome: Code(s): G56.01 - Carpal tunnel syndrome, right upper limb Plan Assessment & Plan: 1. Right carpal tunnel syndrome, moderate-severe Symptoms intermittent, but daily, worse in the mornings I educated her about this condition I discussed operative and non-operative treatment options The risks and benefits of operative treatment were discussed with the patient and the patient wishes to proceed with surgery. 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 She will follow up sometime in February to discuss surgery in more detail, she would not be willing to have surgery until at least March/April, after pre-school is completed for the Spring. Scribed for Daisy Harry MD by Lg Atkins, medical doctor md/medical director, on 11/14/23 at 10:00 AM, EST. Coding Level of Care Code Est Pt Level 4 (29686) Diagnoses Right carpal tunnel syndrome G56.01
== END 2023-11-14 09:45 | disposition home or self-care (01) ==
PROVIDERS: PCP Family Medicine; Visit Provider Orthopaedic Surgery
DX: G56.01 Carpal tunnel syndrome, right upper limb (principal)
CPT/HCPCS: 99214

== ENCOUNTER → 2023-11-14 09:12 | Outpatient (BNVA) | payer MEDICAID, OTHER, SELFPAY | PROVIDERS: PCP Family Medicine; Visit Provider Orthopaedic Surgery | DX: G56.01 Carpal tunnel syndrome, right upper limb (principal) | CPT/HCPCS: 99212 ==

== ENCOUNTER 2024-01-12 08:56 | Outpatient (REF) | payer MEDICAID, OTHER, SELFPAY ==
--- NOTE | ~2024-01-12 | XR_ITS ---
EXAMINATION: XR KNEE, RIGHT CLINICAL INFORMATION: Persistent pain status-post fall; question patellar subluxation. COMPARISON: None available. TECHNIQUE: AP, bilateral oblique and axial views of the right knee are submitted. FINDINGS: No fracture or joint effusion. Alignment is anatomic. Joint spaces are maintained. No abnormal soft tissue calcification. XR/XR knee RT 4V IMPRESSION: Normal right knee.
== END 2024-01-12 08:57 | disposition home or self-care (01) ==
LOC: HO.XRAY 08:56
PROVIDERS: PCP Registered Nurse; Visit Provider Registered Nurse
DX: M25.561 Pain in right knee (principal); G89.29 Other chronic pain
CPT/HCPCS: 73564

== ENCOUNTER 2024-03-20 14:43 | Outpatient (AMB) | payer OTHER, SELFPAY ==
--- NOTE | 2024-03-20 14:48 | MHC.OFFVIS ---
Vital Signs 03/20/24 14:51 Height 5 ft 3 in Weight 133 lb BMI 23.6 Intake Visit Reasons: OV-Discuss RT CTS surgery Intake Note: Alexia 43 year old female presents today for a follow up visit for a follow up visit for her right hand CTS. EMG done and would like to discuss surgical intervention. Allergies No Known Allergies [No Known Allergies*] Allergy (Verified 03/20/24 14:49) HPI HPI OV-Discuss RT CTS surgery: Details: Alexia is a 43 year old right hand dominant woman who returns to discuss her right carpal tunnel syndrome She complains of numbness in the thumb, index, and middle fingers of her right hand. Symptoms intermittent, but daily, worse in the mornings or with activities such as cooking. She wears a wrist brace at night, which is helpful. She would like to discuss treatment options. 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 She would like to discuss surgery [facility] Medical History Gestational diabetes Lactating mother Lump of left breast Surgical History H/O breast biopsy No history of previous surgery Family History Mother Lung cancer Maternal Grandmother Cancer of unknown origin Paternal Uncle Liver cancer Family/Other Bone cancer Social History Household Members: Spouse and Children Housing: House Alcohol intake: former Patient Tobacco Use Status: Never used Tobacco Sexual orientation: Straight/Heterosexual Gender identity: Female Female Reproductive History Menstrual Age of Menarche: 13 Physical Exam Vital Signs: BMI result Body Mass Index 23.6 Extrem Other: Evaluation of right Upper Extremity: The patient is alert, oriented, and in no acute distress Neuro: Median, Ulnar, Radial nerves motor and sensory intact and sensation is normal to the tips of all digits No thenar or intrinsic wasting Good APB muscle belly firing and good finger cross Vascular: Cap refill brisk ROM: She can make a fist and extend all her digits Nerve Conduction Study: IMPRESSION: 1. This is an abnormal study. 2. There is electrodiagnostic evidence for right moderate-severe median neuropathy at the wrist, consistent with carpal tunnel syndrome. 3. There is no electrodiagnostic evidence for ulnar neuropathy, brachial plexopathy, or cervical radiculopathy. Tyesha Rangel MD, BRET 09/06/23 Assessment & Plan Assessment & Plan (1) Right carpal tunnel syndrome: Code(s): G56.01 - Carpal tunnel syndrome, right upper limb Category: Medical Plan Assessment & Plan: 1. Right carpal tunnel syndrome, moderate-severe Symptoms intermittent, but daily, worse in the mornings I educated her about this condition I discussed operative and non-operative treatment options The patient would like to proceed with surgery The risks and benefits of operative treatment were discussed with the patient and the patient wishes to proceed with surgery. These risks include, but are not limited to risk of damage to blood vessels, nerves, tendons, infection, recurrence, incomplete relief of preoperative symptoms, persistent pain, possible need for further surgery and the risks associated with regional blocks and anesthesia. The plan is to take the patient to the operating room sometime in the next few weeks for the following procedures: 1. Right carpal tunnel release, under local All of the preoperative paperwork including the consent was reviewed today. All the patient's questions were answered. The patient understands that they will be contacted by our rehabilitation aide/scheduler soon to schedule this procedure. This should be done sometime in April to allow for healing before she returns to her wor at a Pre-school in June She denies Diabetes, blood thinners, asthma, heart, lung, kidney issues Scribed for Daisy Harry MD by Lg Atkins, director medical writing, on 03/20/24 at 3:25 PM, EST. Coding Level of Care Code Est Pt Level 4 (18300) Diagnoses Right carpal tunnel syndrome G56.01
[2024-03-20 14:51] VITALS: BMI 23.6
== END 2024-03-20 16:10 | disposition home or self-care (01) ==
PROVIDERS: PCP Family Medicine; Referring Provider Family Medicine; Visit Provider Orthopaedic Surgery
DX: G56.01 Carpal tunnel syndrome, right upper limb (principal)
CPT/HCPCS: 99214

== ENCOUNTER → 2024-03-20 14:43 | Outpatient (BNVA) | payer MEDICAID, OTHER, SELFPAY | PROVIDERS: PCP Family Medicine; Visit Provider Orthopaedic Surgery | DX: G56.01 Carpal tunnel syndrome, right upper limb (principal) | CPT/HCPCS: 99212 ==

== ENCOUNTER 2024-05-22 08:19 | Outpatient (AMB) | payer OTHER, SELFPAY ==
--- NOTE | 2024-05-22 08:23 | A.OFFVIS_ITS ---
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 Doing well with no concerns: feels different w/cycles-mood changes, headache. She tries to eat healthy, admits to having a sweet tooth, stays active with exercise. Regular monthly menses. Currently is sexually active. She denies vaginal itching and irritation. STI screening offered; she declined. Denies family history of breast, ovarian or colon cancer. Last pap smear 2019, negative. Mammogram: 2022. [facility] Medical History Gestational diabetes Lactating mother Lump of left breast Surgical History H/O breast biopsy No history of previous surgery Family History Mother Lung cancer Maternal Grandmother Cancer of unknown origin Paternal Uncle Liver cancer Family/Other Bone cancer Social History Household Members: Spouse and Children Housing: House Alcohol intake: former Patient Tobacco Use Status: Never used Tobacco Sexual orientation: Straight/Heterosexual Gender identity: Female Female Reproductive History Menstrual Age of Menarche: 13 Date of last menstrual period: 05/01/24 control method: none and natural family planning Total pregnancies: 2 Full term: 2 Number of Living Children: 2 Date of last pap smear: 11/28/19 (neg pap and hpv) Date of Mammogram: 05/30/23 ([facility] 2) Review of Systems Const All systems reviewed & are unremarkable except as noted in HPI and below Reports as per HPI Eyes Reports no additional complaints ENT Reports no additional complaints Card Reports no additional complaints Resp Reports no additional complaints GI Reports as per HPI and Reports no additional complaints Reports as per HPI Musc Reports no additional complaints Skin/Breast Reports as per HPI Neuro Reports no additional complaints Psych Reports no additional complaints Endo Reports no additional complaints Ovi/Lymph Reports no additional complaints Aller/Immun Reports no additional complaints Physical Exam Const General: cooperative, healthy appearing, no acute distress, well developed and alert Orientation/consciousness: patient oriented x3 HEENT Head: Yes normal to inspection Eyes General: appearance normal, both eyes and all related structures Neck Neck: Yes normal visual inspection Thyroid: Thyroid normal Chest Chest palpation & inspection: normal inspection of the chest and other (no puckering, dimpling, peau de orange, retraction, discharge, masses) Breast/axilla inspection: normal inspection of the breasts Breast/axilla palpation: normal palpation of the breasts Resp Effort & Inspection: normal respiratory effort GI Inspection: Yes normal to inspection Palpation (GI): Soft to palpation Rectal Exam - Female: deferred General: Yes bladder normal to palpation External Female Exam: normal external appearance and normal appearance of the urethra Speculum Exam - Vagina: normal appearance of the vagina, normal palpation and normal vaginal discharge Speculum Exam - Cervix: normal appearance of the cervix and normal palpation Bimanual exam- vagina & uterus: normal bimanual exam, normal palpation, uterine size normal, bladder normal to palpation, normal palpation and non-tender Bimanual Exam- Adnexa, other: no masses Skin General skin exam: no rashes or lesions noted Rashes: no rashes Neuro General: patient oriented x3 Cognition (Neuro): normal cognition Extrem General: Yes normal to inspection Psych Attitude: cooperative Thought process: Normal thought process present Assessment & Plan Assessment & Plan (1) Encounter for well woman exam with routine gynecological exam: Code(s): Z01.419 - Encounter for gynecological examination (general) (routine) without abnormal findings Category: Medical Plan: Discussed: Current recommendations for pap smears per ASCCP guidelines. Breast awareness and periodic breast exams. Maintain a healthy lifestyle including a well balanced diet reduced sugar intake and eliminate, and routine exercise in a.m. Mammogram yearly. Patient verbalizes understanding and agrees to the plan of care. She was given opportunity to ask questions and all questions were answered to the best of my ability. RTO in one year for annual strategic account executive examination. This note is constructed using voice recognition software. While every effort has been made to ensure accuracy, keyliner errors may have been included. Coding Level of Care Code Est Pt Prev Care 40-64y(15164) Diagnoses Encounter for well woman exam with routine gynecological exam Z01.419
[2024-05-22 08:24] VITALS: BP 100/64; BMI 24.4
== END 2024-05-22 09:04 | disposition home or self-care (01) ==
PROVIDERS: PCP Family Medicine; Visit Provider Advanced Practice Midwife
DX: Z01.419 Encounter for gynecological examination (general) (routine) without abnormal findings (principal)
CPT/HCPCS: 99396

== ENCOUNTER → 2024-05-22 08:19 | Outpatient (BNVA) | payer OTHER, SELFPAY | PROVIDERS: PCP Family Medicine; Visit Provider Advanced Practice Midwife | DX: Z01.419 Encounter for gynecological examination (general) (routine) without abnormal findings (principal) | CPT/HCPCS: 99396 ==

== ENCOUNTER 2024-05-30 07:27 | Day surgery (SDC) | payer OTHER, SELFPAY ==
[2024-05-30 08:18] VITALS: BMI 26.3
[2024-05-30 08:21] VITALS: BP 110/72; PULSE 81; RESP 16; TEMP 36.6; O2SAT 100
--- NOTE | 2024-05-30 09:36 | MHC.SHP ---
Pre-Procedural Eval Section A - 24 Hr Update-Section A only Date of Service: 05/30/24 The patient is an INPATIENT: No Changes since office visit: No Cold of Flu in the past 2 weeks, No New Medical Problems, No Changes in Medication and No Patient answered all questions The patient has been examined within 24 hours of the surgical procedure. The History & Physical has been completed within 30 days and I have reviewed it.: Yes Section B - Complete if H&P > 30 days Chief Complaint: Carpal tunnel syndrome, right upper limb Allergies: Allergies Allergy/AdvReac Type Severity Reaction Status Date / Time No Known Allergies Allergy Verified 05/22/24 08:24 [No Known Allergies*] Plan Diagnosis/Plan: Unchanged I have reviewed the history and physical and performed a pertinent physical examination on my patient. No changes have occurred unless specified. Time Spent With Patient Time: Total time managing care of this patient today ____ minutes.
--- NOTE | 2024-05-30 09:36 | W.PM.OPN ---
Operative Note Operative Note Date of Service: 05/30/24 Narrative: Preop diagnosis: 1. Right Carpal tunnel syndrome Postop diagnosis: same Procedure: 1. Right Carpal tunnel release Surgeon: Daisy Harry MD Echometer Engineer: Vasile CHEEK Anesthesia: local block using 1% lidocaine with epinephrine Findings: Thickened transverse carpal ligament. EBL: Less than 5 mL Specimens: None Complications: None Disposition: Brought to recovery room in stable condition Plan: Follow-up for 10-14 days for wound check and suture removal Indications: The patient is 43 years old, with right carpal tunnel syndrome that has been unresponsive to nonoperative management. The risks and benefits of operative treatment including but not limited to risk of damage to blood vessels, nerves, tendons, infection, persistent pain, persistent symptoms, or possible need for additional surgery were discussed with the patient and the patient wishes to proceed with surgery. Procedure: Once consent was obtained a local block was performed using a combination of 1% lidocaine with epinephrine. The patient was then brought back to the operating suite and placed on the operative table in supine position. The right upper extremity was prepped and draped in a standard surgical fashion. Once assured that we had a good block, a 2.0 cm longitudinal incision was made centered over the carpal tunnel. The incision was made through the skin to the subcutaneous tissues using a #15 blade. Dissection was made down to the level of the transverse carpal ligament with care being taken to protect the palmar cutaneous nerve. Once the transverse carpal ligament was clearly visualized, a longitudinal incision was made in the transverse carpal ligament 1st using a #15 blade, then using tenotomy scissors under direct visualization. Care was taken to look for and protect the motor branch of the median nerve when seen in this area. Once satisfied with our carpal tunnel release the wound was copiously irrigated with normal saline and hemostasis was obtained with a brief period of local pressure. The skin edges were reapproximated with some 5.0 nylon suture material and a sterile dressing was applied. The patient appears to have tolerated the procedure well and with no complications. All digits were well vascularized at the conclusion of the case.
[2024-05-30 10:23] VITALS: BP 98/64; PULSE 78; RESP 16; O2SAT 100
== END 2024-05-30 10:24 | disposition home or self-care (01) ==
PROVIDERS: PCP Family Medicine; Visit Provider Orthopaedic Surgery
PROC: (CPT 64721; principal; 2024-05-30 08:50)
DX: G56.01 Carpal tunnel syndrome, right upper limb (principal)
CPT/HCPCS: 64721; J0171

== ENCOUNTER → 2024-05-30 07:27 | Outpatient (BNV) | payer OTHER, SELFPAY | PROVIDERS: PCP Family Medicine; Visit Provider Orthopaedic Surgery | DX: G56.01 Carpal tunnel syndrome, right upper limb (principal) | CPT/HCPCS: 64721 ==

== ENCOUNTER 2024-06-05 13:22 | Outpatient (REF) | payer OTHER, SELFPAY ==
--- NOTE | ~2024-06-05 | MM_ITS ---
EXAMINATION: MM SCREENING DIGITAL BREAST TOMOSYNTHESIS, BILATERAL CLINICAL INFORMATION: Screening. Asymptomatic. COMPARISON: Mammography: Comparison is made with available priors. TECHNIQUE: Digital breast tomosynthesis is performed in both the craniocaudal and mediolateral oblique views along with computer-aided detection (CAD). Synthesized 2D images are generated from the tomosynthesis. FINDINGS: The breasts are heterogeneously dense, which may obscure small masses (ACR BI-RADS breast composition Category c). Left: Marker clip from previous needle core biopsy. There is a focal asymmetry in the upper inner breast posterior depth. No suspicious calcifications or other abnormal findings. Right: Asymmetry superior breast notes posterior depth on the MLO view. No suspicious calcifications or other abnormal findings. MM/MM tomosynthesis screening BI IMPRESSION: Bilateral asymmetries. Additional imaging and possible ultrasound is recommended at this time. ASSESSMENT: BI-RADS BI-RADS 0 - Incomplete: Needs additional Imaging. RECOMMENDATION: 1. Additional views of the bilateral breasts 2. Targeted ultrasound if warranted after review of the additional views. 3. Radiology department staff will contact the patient for additional imaging. Additional Imaging required This examination should not preclude the clinical evaluation of a suspicious palpable abnormality. This patient's information was entered into a reminder system with a target due date for their next mammogram. Electronically signed by: Pamela Almeida DO 07/03/2024 09:32 PM EDT
== END 2024-06-05 13:23 | disposition home or self-care (01) ==
LOC: HO.MAMMO 13:22
PROVIDERS: PCP Family Medicine; Visit Provider Family Medicine
DX: Z12.31 Encounter for screening mammogram for malignant neoplasm of breast (principal)
CPT/HCPCS: 77063; 77067

== ENCOUNTER → 2024-06-05 13:30 | Outpatient (BNV) | payer OTHER, SELFPAY | PROVIDERS: PCP Family Medicine; Visit Provider Internal Medicine | DX: Z12.31 Encounter for screening mammogram for malignant neoplasm of breast (principal) | CPT/HCPCS: 77063; 77067 ==

== ENCOUNTER 2024-06-12 15:23 | Outpatient (AMB) | payer OTHER, SELFPAY ==
--- NOTE | 2024-06-12 15:29 | A.OFFVIS_ITS ---
Intake Visit Reasons: PO RT CTR 05/30/24 AR Intake Note: Alexia is a 44 year old right hand dominant female who presents today post- operatively s/p right carpal tunnel release done 05/30/[address] Harry. Patient reports numbness and tingling has improved. She expresses sensitivity at her incisions. Steei strips have been removed and steri strips applied. Allergies No Known Allergies [No Known Allergies*] Allergy (Verified 06/12/24 15:32) HPI HPI PO RT CTR 05/30/24 AR: Details: Patient is a 44 year old female who presents for 2 week postoperative evaluation status post carpal tunnel release, DOS 05/30/2024. Today, the patient reports that they are feeling well, and have no acute complaints or concerns at this time. They reports some mild discomfort about the incision site, but no erythema, ecchymosis, or discharge from the incision. The patient reports that range of motion is full and intact, and then she is able to make a closed fist and extend fully without difficulty.. Patient states that there numbness and tingling is resolved since surgery. Other acute complaints or concerns at this time. [facility] Medical History Lactating mother Lump of left breast Gestational diabetes Surgical History H/O breast biopsy No history of previous surgery Family History Mother Lung cancer Maternal Grandmother Cancer of unknown origin Paternal Uncle Liver cancer Family/Other Bone cancer Social History Household Members: Spouse and Children Housing: House Alcohol intake: former Comment: counts correct Patient Tobacco Use Status: Never used Tobacco Sexual orientation: Straight/Heterosexual Gender identity: Female Female Reproductive History Menstrual Age of Menarche: 13 Physical Exam Extrem Other: Patient is alert, oriented, and in no acute distress. Neuro: Patient reports normal sensation to the tips of all digits of the right hand at this time. Vascular: Cap refill brisk Pain: Patient reports mild discomfort at the incision site on the volar right wrist, but states that she would not describe this as pain. No increased tenderness to palpation. Range of motion of the right hand painless ROM: Patient is able to make a closed fist and extend fingers fully without difficulty Skin: Well-healing incision site noted on the volar right wrist. General: No ecchymosis, erythema, or evidence of infection. Psych: Appears grossly normal Affect normal Attitude cooperative Assessment & Plan Assessment & Plan (1) Right carpal tunnel syndrome: Code(s): G56.01 - Carpal tunnel syndrome, right upper limb Category: Medical Plan 1. Carpal tunnel syndrome, right, status post carpal tunnel release DOS 05/30/2024 Patient is recovering well postoperatively Patient is educated about the typical recovery course At this time, due to patient's full and intact range of motion, I do not feel that occupational hand therapy is necessary Patient does not require acute scheduled follow-up with us Patient will follow-up as needed with any acute concerns Coding Level of Care Code Global (09847) Diagnoses Right carpal tunnel syndrome G56.01
== END 2024-06-12 15:50 | disposition home or self-care (01) ==
PROVIDERS: PCP Family Medicine; Visit Provider Orthopaedic Surgery
DX: G56.01 Carpal tunnel syndrome, right upper limb (principal)
CPT/HCPCS: 99024

== ENCOUNTER → 2024-06-12 15:23 | Outpatient (BNVA) | payer MEDICAID, SELFPAY | PROVIDERS: PCP Family Medicine; Visit Provider Orthopaedic Surgery | DX: Z48.811 Encounter for surgical aftercare following surgery on the nervous system (principal); Z86.69 Personal history of other diseases of the nervous system and sense organs | CPT/HCPCS: 99212 ==

== ENCOUNTER → 2024-06-13 13:39 | Outpatient (RCR) | payer MEDICAID, SELFPAY ==
[2021-02-15 11:55] VITALS: BP 91/67; PULSE 82; RESP 12; TEMP 36.3; O2SAT 98; BMI 24.2
--- NOTE | 2021-02-15 11:56 | PM.HEMONCPN ---
Medical Summary - Medical Summary Date of Service: 02/15/21 Chief complaint: Scheduled follow-up Medical Summary: Diagnosis: ITP 2018 Pt was admitted in November 2017 with complaints of dizziness, nausea and diarrhea. Blood work revealed thrombocytopenia, platelet count 12,000. Previous blood work was in [place] when she delivered her child 6-7 years ago. Never been told of thrombocytopenia. Only symptom was heavy menstrual bleeding. Normal WBC and hemoglobin. Hepatitis C antibody screen negative, HIV screen negative, normal liver and kidney functions. Seen by Dr. Bragg in consultation in house. 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 Interval History Interval history: Patient is here in follow-up. She is doing quite well and has no complaints today. She delivered a healthy baby boy 2 months ago. She is taking her vitamins. She had no problems with her platelet counts during her or in the period. She was diagnosed with a fibroadenoma for left breast and is scheduled for an excision biopsy after she completes breast feeding. Review of Systems - Constitutional Reports no additional constitutional complaints [facility] Medical History: Medical History (Last Updated 02/11/21 @ 10:40 by Janice Lugo) Gestational diabetes Lactating mother Lump of left breast Family History: Family History (Last Reviewed 02/11/21 @ 09:41 by Corina Titus CNM) Mother Lung cancer Maternal Grandmother Cancer of unknown origin Paternal Uncle Liver cancer Family/Other Bone cancer Surgical History: Surgical History (Last Updated 02/11/21 @ 10:39 by Janice Lugo) H/O breast biopsy No history of previous surgery Social History: Social History (Last Updated 02/15/21 @ 11:59 by Ana M Jones) Alcohol History: Alcohol intake: former Alcohol History Details: Alcohol intake frequency: does not drink Tobacco History: Smoking Status: Never smoker Substance Use History: Use of substances other than those prescribed or required for medical reasons: No Sex/Gender Assessment: Gender identity: female Oncology Screenings - ECOG Performance Status ECOG Performance Status: 0 Home Medications and Allergies Home Medications Medication Instructions Recorded Confirmed Type vitamin with calcium 1 tab PO DAILY 08/03/20 02/15/21 History no.72-iron 27 mg-folic acid 1 mg tablet Allergies Allergy/AdvReac Type Severity Reaction Status Date / Time No Known Allergies Allergy Verified 02/11/21 09:21 [No Known Allergies*] Exam Vital signs: Vital Signs Temp Pulse Resp BP Pulse Ox 02/15/21 11:55 97.4 F 82 12 91/67 98 Intake and Output 02/14/21 02/15/21 02/15/21 22:59 06:59 14:59 Other: Weight 62 kg [place] Weight in Grams [id number] Patient Weight 02/16/21 06:59 Weight 62 kg - Constitutional Present: no acute distress - Routine HEENT Exam Head: Present: normal inspection Eye: Present: EOMI, PERRL - Routine Neck Exam Present: normal inspection - Routine Respiratory Exam Present: CTAB - Routine Cardiovascular Exam Cardiovascular: Present: S1, S2 Data - Labs CBC & Chem 7: 02/15/21 12:07 Progress Note: A/P (1) Chronic ITP (idiopathic thrombocytopenia) Status: Chronic Assessment and plan: 1. 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 She is now off prednisone. Platelet counts are stable. Probable mild viral gastroenteritis that has resolved. She was advised to continue with vitamins until she finishes . She will now follow up with her PCP. - Time Spent With Patient Total time spent is greater than 50% in coordination of care (as documented) at patient's floor/unit and/or counseling patient: 15 - 24 minutes
[2021-02-15 12:08] LABS: MANUAL DIFF FLAG NO
[2021-02-15 12:17] LABS: Basophils Percent Auto 0.3 % (0-2); Eosinophils Percent Auto 0.5 % (0-4); Hemoglobin 12.7 g/dl (12.0-16.0); Imm Gran Abs Auto 0.02 X10*3/uL (0.00-0.03); Imm Gran Pct Auto 0.3 % (0.0-0.4); Lymphocytes Absolute Auto 1.9 X10*3/uL (1.2-4.9); Lymphocytes Percent Auto 32.1 % (20-40); Mean Corpuscular HGB Conc 32.6 g/dl (31.0-35.0); Mean Corpuscular Hemoglobin 29.6 pg (27.0-33.0); Mean Corpuscular Volume 90.9 fL (80-98); Mean Platelet Volume 9.4 fL (9.4-12.3); Monocytes Absolute Auto 0.3 X10*3/uL (0.1-1.2); Monocytes Percent Auto 5.5 % (2-11); Neutrophils Absolute Auto 3.6 X10*3/uL (2.0-8.3); Neutrophils Percent Auto 61.3 % (45-73); Platelet Count 154 X10*3/uL (160-400); Red Blood Count 4.29 X10*6/uL (4.20-5.50); Red Cell Distribution Width 12.8 % (11.0-16.0); White Blood Count 5.8 X10*3/uL (4.8-10.8)
--- NOTE | 2021-02-15 12:26 | PM.HEMONCPN ---
Medical Summary - Medical Summary Date of Service: 02/15/21 Chief complaint: Follow-up Medical Summary: Diagnosis: ITP 2018 Pt was admitted in November 2017 with complaints of dizziness, nausea and diarrhea. Blood work revealed thrombocytopenia, platelet count 12,000. Previous blood work was in [place] when she delivered her child 6-7 years ago. Never been told of thrombocytopenia. Only symptom was heavy menstrual bleeding. Normal WBC and hemoglobin. Hepatitis C antibody screen negative, HIV screen negative, normal liver and kidney functions. Seen by Dr. Bragg in consultation in house. 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 Interval History Interval history: Patient is here in follow-up. She is doing quite well, she delivered a healthy baby boy two months ago. She is taking vitamins for anemia that she has developed peripartum. Her platelet counts have been normal. She denies excess fatigue or exertional shortness of breath. She is breast feeding. 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 She denies any breast pain, palpable lump or nipple discharge. Review of Systems - Constitutional Reports as per HPI, Reports no additional constitutional complaints - Cardiovascular Reports no additional cardiovascular complaints - Respiratory Reports no additional respiratory complaints [facility] Medical History: Medical History (Last Updated 02/11/21 @ 10:40 by Janice Lugo) Gestational diabetes Lactating mother Lump of left breast Family History: Family History (Last Reviewed 02/11/21 @ 09:41 by Corina Titus CNM) Mother Lung cancer Maternal Grandmother Cancer of unknown origin Paternal Uncle Liver cancer Family/Other Bone cancer Surgical History: Surgical History (Last Updated 02/11/21 @ 10:39 by Janice Lugo) H/O breast biopsy No history of previous surgery Social History: Social History (Last Reviewed 02/11/21 @ 09:41 by Corina Titus CNM) Alcohol History: Alcohol intake: never Tobacco History: Smoking Status: Never smoker Sex/Gender Assessment: Gender identity: female Smoking status: Never smoker Home Medications and Allergies Home Medications Medication Instructions Recorded Confirmed Type vitamin with calcium 1 tab PO DAILY 08/03/20 01/29/21 History no.72-iron 27 mg-folic acid 1 mg tablet Allergies Allergy/AdvReac Type Severity Reaction Status Date / Time No Known Allergies Allergy Verified 02/11/21 09:21 [No Known Allergies*] Exam Vital signs: Vital Signs Temp 97.4 F 02/15/21 11:55 Pulse 82 02/15/21 11:55 Resp 12 02/15/21 11:55 BP 91/67 02/15/21 11:55 Pulse Ox 98 02/15/21 11:55 Intake & Output 02/14/21 02/15/21 02/15/21 18:59 06:59 18:59 Other: Weight 62 kg Weight in Grams 49629 Weight 62 kg Body Mass Index 24.2 - Constitutional Present: no acute distress - Routine HEENT Exam Head: Present: normal inspection Eye: Present: EOMI - Routine Neck Exam Absent: lymphadenopathy - Routine Respiratory Exam Present: CTAB - Routine Cardiovascular Exam Cardiovascular: Present: S1, S2 Data - Labs CBC & Chem 7: 02/15/21 12:07 Labs: 02/15/21 12:07 Complete Blood Count Auto Diff Routine Laboratory Last Values WBC 5.8 X10*3/uL (4.8-10.8) 02/15/21 12:07 RBC 4.29 X10*6/uL (4.20-5.50) D 02/15/21 12:07 Hgb 12.7 g/dl (12.0-16.0) 02/15/21 12:07 Hct 39.0 % (37-47) 02/15/21 12:07 MCV 90.9 fL (80-98) 02/15/21 12:07 MCH 29.6 pg (27.0-33.0) 02/15/21 12:07 MCHC 32.6 g/dl (31.0-35.0) 02/15/21 12:07 RDW 12.8 % (11.0-16.0) 02/15/21 12:07 Plt Count 154 X10*3/uL (160-400) L 02/15/21 12:07 MPV 9.4 fL (9.4-12.3) 02/15/21 12:07 Immature Gran % (Auto) 0.3 % (0.0-0.4) 02/15/21 12:07 Neut % (Auto) 61.3 % (45-73) 02/15/21 12:07 Lymph % (Auto) 32.1 % (20-40) 02/15/21 12:07 [place] % (Auto) 5.5 % (2-11) 02/15/21 12:07 Eos % (Auto) 0.5 % (0-4) 02/15/21 12:07 Baso % (Auto) 0.3 % (0-2) 02/15/21 12:07 Lymph # (Auto) 1.9 X10*3/uL (1.2-4.9) 02/15/21 12:07 [place] # (Auto) 0.3 X10*3/uL (0.1-1.2) 02/15/21 12:07 Eos # (Auto) 0.0 X10*3/uL (0.0-0.4) 02/15/21 12:07 Baso # (Auto) 0.0 X10*3/uL (0.0-0.2) 02/15/21 12:07 Abs Immat Gran (auto) 0.02 X10*3/uL (0.00-0.03) 02/15/21 12:07 Absolute Neuts (auto) 3.6 X10*3/uL (2.0-8.3) 02/15/21 12:07 Absolute Nucleated RBC 0.000 X10*3/uL (0.0-0.012) 02/15/21 12:07 Nucleated RBC % (auto) 0.0 /100WBC (0.0-0.2) 02/15/21 12:07 Progress Note: A/P (1) Chronic ITP (idiopathic thrombocytopenia) Status: Chronic Assessment and plan: 1. 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 She is now off prednisone. Platelet counts are stable. Blood work today is normal. Probable mild viral gastroenteritis that has resolved. No further intervention necessary at this time. - Time Spent With Patient Total time spent is greater than 50% in coordination of care (as documented) at patient's floor/unit and/or counseling patient:
[2021-02-15 12:37] LABS: Iron 66 mcg/dL (30-160); Percent Iron Saturation 24 % (15-50); Total Iron Binding Capacity 273 mcg/dL (228-428); Unsaturated Iron Binding 207 ug/dL
--- NOTE | 2021-02-15 13:50 | MHC.HEMONCMA ---
Patient came in for a follow up, states she is doing well. States on her mammo they found a benign tumor that they plan on removing once she is finished breast feeding. Clinical summary was reviewed and updated. Patient had labs. Dr Cr will call her to determine when she needs to come back for an appt.
== END | disposition home or self-care (01) ==
LOC: HO.ONC 02-15 11:49
PROVIDERS: Visit Provider Internal Medicine
DX: D69.3 Immune thrombocytopenic purpura (principal)
CPT/HCPCS: 36415; 83540; 85025; 99213

== ENCOUNTER 2024-08-08 14:15 | Outpatient (REF) | payer OTHER, SELFPAY ==
--- NOTE | ~2024-08-08 | MM_ITS ---
EXAMINATION: MM DIAGNOSTIC DIGITAL BREAST TOMOSYNTHESIS, BILATERAL CLINICAL INFORMATION: Diagnostic bilateral; evaluate one view asymmetry right MLO view superior aspect middle depth seen on screening exam. Also evaluate left focal asymmetric density upper inner left breast posterior depth, just posterior to a benign biopsy clip. COMPARISON: Mammography: Screening mammography 06/05/2024, and exams dating back to 2019. TECHNIQUE: Digital breast tomosynthesis is performed in the following views: Full field 3-D digital right ML view, as well as a spot compression 3-D right MLO view, and 3-D spot compression left CC and MLO views. Computer-aided diagnosis was used for this study. FINDINGS: The breasts are heterogeneously dense, which may obscure small masses (ACR BI-RADS breast composition Category c). RIGHT BREAST: Diagnostic views demonstrate no persistent asymmetry in the superior right MLO view. Finding effaces on spot compression view. Findings are consistent with superimposition artifact of overlapping heterogeneously dense breast tissues. LEFT BREAST: Focal asymmetry in the upper inner left breast posterior depth, just posterior to a biopsy clip (benign) does not persist on spot compression views. Finding effaces on both views. Findings are consistent with superimposition artifact of overlapping heterogeneously dense breast tissues. No masses, areas of architectural distortion, persistent asymmetries, or abnormal calcifications identified in either breast. MM/MM tomosynthesis diagnostic BI IMPRESSION: -There are no persistent findings suspicious for malignancy in either breast. -Both areas of concern effaced completely on diagnostic views, and are consistent with superimposition artifact of normal heterogeneously dense tissue. -Recommend the patient resume routine annual screening mammography. ASSESSMENT: BI-RADS BI-RADS 1 - Negative RECOMMENDATION: 1 year F/U Results were provided to the patient at time of visit by the technologist. This patient's information was entered into a reminder system with a target due date for their next mammogram. Electronically signed by: Jamal Stevenson MD 08/08/2024 03:00 PM EDT
== END 2024-08-08 14:16 | disposition home or self-care (01) ==
LOC: HO.MAMMO 14:15
PROVIDERS: PCP Family Medicine; Visit Provider Family Medicine
DX: N64.89 Other specified disorders of breast (principal)
CPT/HCPCS: 77062; 77066

== ENCOUNTER → 2024-08-08 14:30 | Outpatient (BNV) | payer OTHER, SELFPAY | PROVIDERS: PCP Family Medicine; Visit Provider Radiology Diagnostic Radiology | DX: R92.333 Mammographic heterogeneous density, bilateral breasts (principal) | CPT/HCPCS: 77062; 77066 ==

== ENCOUNTER 2025-05-27 08:21 | Outpatient (AMB) | payer OTHER, SELFPAY ==
--- NOTE | 2025-05-27 08:24 | MHC.OFFVIS ---
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 Stuffer concerns: Breast-feeding at night. Regular monthly menses. Currently is sexually active. Not using condoms, not interested in control. She denies vaginal itching or irritation. STI screening offered; she declines. She tries to eat healthy and stays active with exercise. Denies family history of breast, ovarian or colon cancer. Last pap smear 2019, negative. Mammogram: July 2024. History of benign left breast biopsy 2023. [facility] Medical History Lactating mother Lump of left breast Gestational diabetes Surgical History H/O breast biopsy No history of previous surgery Family History Mother Lung cancer Maternal Grandmother Cancer of unknown origin Paternal Uncle Liver cancer Family/Other Bone cancer Social History Household Members: Spouse and Children Housing: House Alcohol intake: former Comment: counts correct Patient Tobacco Use Status: Never used Tobacco Patient : No Sexual orientation: Straight/Heterosexual Gender identity: Female Female Reproductive History Menstrual Age of Menarche: 13 Duration of menses: 3-5 days Date of last menstrual period: 05/02/25 control method: none Total pregnancies: 2 Full term: 2 Date of last pap smear: 11/28/19 (negative pap smear, negative hpv ) History of abnormal pap smear: No Date of Mammogram: 08/08/24 (bi rad 1) Review of Systems Const All systems reviewed & are unremarkable except as noted in HPI and below Reports as per HPI Eyes Reports no additional complaints ENT Reports no additional complaints Card Reports no additional complaints Resp Reports no additional complaints GI Reports as per HPI and Reports no additional complaints Reports as per HPI Musc Reports no additional complaints Skin/Breast Reports as per HPI Neuro Reports no additional complaints Psych Reports no additional complaints Endo Reports no additional complaints Ovi/Lymph Reports no additional complaints Aller/Immun Reports no additional complaints Physical Exam Vital Signs: Last Vital Signs BP 108/70 05/27/25 08:40 BMI result Body Mass Index 23.5 Const General: cooperative, healthy appearing, no acute distress, well developed and alert Orientation/consciousness: patient oriented x3 HEENT Head: Yes normal to inspection Eyes General: appearance normal, both eyes and all related structures Neck Neck: Yes normal visual inspection Thyroid: Thyroid normal Chest Chest palpation & inspection: normal inspection of the chest and other (no puckering, dimpling, peau de orange, retraction, discharge, masses) Breast/axilla inspection: normal inspection of the breasts Breast/axilla palpation: normal palpation of the breasts Resp Effort & Inspection: normal respiratory effort GI Inspection: Yes normal to inspection Palpation (GI): Soft to palpation Rectal Exam - Female: deferred General: Yes bladder normal to palpation External Female Exam: normal external appearance and normal appearance of the urethra Speculum Exam - Vagina: normal appearance of the vagina, normal palpation and normal vaginal discharge Speculum Exam - Cervix: normal appearance of the cervix, normal palpation and Other cervical findings present (Bled slightly with Pap) Bimanual exam- vagina & uterus: normal bimanual exam, normal palpation, uterine size normal, bladder normal to palpation, normal palpation and non-tender Bimanual Exam- Adnexa, other: no masses Skin General skin exam: no rashes or lesions noted Rashes: no rashes Neuro General: patient oriented x3 Cognition (Neuro): normal cognition Extrem General: Yes normal to inspection Psych Attitude: cooperative Thought process: Normal thought process present Assessment & Plan Assessment & Plan (1) Encounter for well woman exam with routine gynecological exam: Code(s): Z01.419 - Encounter for gynecological examination (general) (routine) without abnormal findings Category: Medical Plan Discussed: Current recommendations for pap smears per ASCCP guidelines. Breast awareness and periodic breast exams. Mammogram yearly. Maintain a healthy lifestyle including a well balanced diet and routine exercise. Initiate vitamins for the benefit of folic acid in prevention of neural tube defects. Monitor menses report any abnormal bleeding pattern. If menses is late to do a home test and call the office for follow up care. Patient verbalizes understanding and agrees to the plan of care. She was given opportunity to ask questions and all questions were answered to the best of my ability. 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 This note is constructed using voice recognition software. While every effort has been made to ensure accuracy, clinical assistant professor errors may have been included. Medications: New PNV,calcium 74-[id number] acid 27 mg iron- 1 mg ( Vitamins Plus Low Iron) 1 tab PO DAILY 90 tabs 4RF Coding Level of Care Code Est Pt Prev Care 40-64y(18964) Diagnoses Encounter for well woman exam with routine gynecological exam Z01.419
--- OUTSIDE RECORDS SUMMARY | 2025-05-27 08:36 | XMS_ITS | Clinical Summary ---
Author Organization [facility] spital Address [address] [place] [address] Phone Care Team Providers Care Oven Tender Name Role Phone Unavailable Primary Care Provider Unavailabl e Encounters Date Type Department Care Team Description 04/10/2025 Orders Only [facility] Genetics Metabolism [address] [place] [address] Edelmira Farr, CHADD Encounter for genetic screening from Last 3 Months Social History Tobacco Use Types Packs/Day Years Used Date Smoking Tobacco: Never Assessed Comments Unknown Sex and Gender Information Value Date Recorded Sex Assigned at Not on file Legal Sex Female 5:27 PM EDT Gender Identity Not on file Sexual Orientation Not on file Plan of Treatment Not on file Procedures Procedure Name Priority Date/Time Associated Diagnosis Comments GENOME SEQUENCING, PARENT/FAMILY MEMBER SAMPLE, OP, J780 Routine 04/10/2025 4:34 PM EDT Encounter for genetic screening EXOME/GENOME SEQUENCING, PARENT/FAMILY MEMBER SAMPLE Routine 04/10/2025 4:34 PM EDT Encounter for genetic screening from Last 3 Months Results * Genome Sequencing, Parent/Family Member Sample (04/10/2025 4:34 PM EDT) Remote Swab Buccal mucosa / Unknown 04/10/2025 4:34 PM EDT 04/10/2025 4:34 PM EDT us Zoraida Olguin MD LAB GENETICS ORDERABLES Fin al Result [facility] [address] [place] [id number], [place] [phone] from Last 3 Months
--- OUTSIDE RECORDS SUMMARY | 2025-05-27 08:36 | XMS_ITS | Clinical Summary ---
Author Organization [facility] ity Address [address] [place] [address] Care Team Providers Care Guest Relations Agent Name Role Phone Unavailable Primary Care Provider Unavailabl e Surgical History Surgery Date Site/Laterality Comments OTHER SURGICAL HISTORY PROCEDURE: DENIES PREVIOUS SURGERY Social History Tobacco Use Types Packs/Day Years Used Date Smoking Tobacco: Never Assessed Comments Unknown Sex and Gender Information Value Date Recorded Sex Assigned at Not on file Legal Sex Female 1:52 AM EST Gender Identity Not on file Sexual Orientation Not on file Obstetrics History Plan of Treatment Health Maintenance Due Date Last Done Comments Breast Cancer Screening 1979 DTaP,Tdap,and Td Vaccines (1 - Tdap) 1998 Hepatitis B Vaccines (1 of 3 - 19+ 3-dose series) 1998 Cervical Cancer Screening: P ap Smear 2000 COVID-19 Vaccine (2023-2 5 season) 2024 Depression Screening 10/16/2024 Influenza Vaccine (#1) 2025 HIB Vaccines Aged Out No longer eligi ble based on patient's age to complete this topic HPV Vaccines Aged Out No longer eligi ble based on patient's age to complete this topic Hepatitis A Vaccines Aged Out No long er eligible based on patient's age to complete this topic IPV Vaccines Aged Out No longer eligi ble based on patient's age to complete this topic MMR Vaccines Aged Out No longer eligi ble based on patient's age to complete this topic Meningococcal ACWY Vaccine Aged Out N o longer eligible based on patient's age to complete this topic Meningococcal B Vaccine Aged Out No l onger eligible based on patient's age to complete this topic Pneumococcal Vaccine: Pediat rics (0 to 5 Years) and At-Risk Patients (6 to 49 Years) Aged Out No longer eligible b ased on patient's age to complete this topic RSV Immunization Patients Un brittani 20 months Aged Out No longer eligible b ased on patient's age to complete this topic Varicella Vaccines Aged Out No longer eligible based on patient's age to complete this topic
--- OUTSIDE RECORDS SUMMARY | 2025-05-27 08:36 | XMS_ITS | Encounter Summary ---
Author Organization [employer] Address [address] [place] [address] Care Team Providers Care Rock Climbing Instructor Name Role Phone Marjorie Bradford MD Primary Care Provider [phone] Encounter Details Date Type Department Care Team (Late st Contact Info) Description 08/09/2024 Abstract [facility] MEDICINE [address] [place] [address] Leslie Gamez [place] Social History Tobacco Use Types Packs/Day Years Used Date Smoking Tobacco: Never Passive Smoke Exposure: Never Smokeless Tobacco: Never Alcohol Use Standard Drinks/Week Comments Never 0 (1 standard drink = 0.6 oz pur e alcohol) Depression Answer Date Recorded Patient Health Questionnaire-9 Score 0 02/28/2023 Housing Stability Answer Date Recorded What is your housing situation today? I do not have housing (Staying with others, in a hotel, in a detention, living outside on the street, on a beach, in a car, or in a park 07/22/[address] you li ve. Do you have problems with any of the following? None of the above 07/22/2023 Food Insecurity Answer Date Recorded Within the past 12 months, y ou worried that your food would run out before you got money to buy more: Never True 08/08/2023 Within the past 12 months,th e food you bought just didn't last and you didn't have enough money to get more: Never True Transportation Answer Date Recorded In the past 12 months, has l ack of transportation kept you from medical appts, meetings, work or from getting things needed for daily living? No 08/08/2023 Utilities Answer Date Recorded In the past 12 months, has t he electric, gas, oil or water company threatened to shut off services in your home? No 08/08/2023 Depression Answer Date Recorded Patient Health Questionnaire-2 Score 0 02/28/2023 Comments Unknown Sex and Gender Information Value Date Recorded Sex Assigned at Female 08/15/2022 10:32 AM EDT Legal Sex Female 10:32 AM EDT Gender Identity Female 08/15/2022 10:32 AM EDT Sexual Orientation Straight 09/27/2022 6: 59 PM EST documented as of this encounter Plan of Treatment Upcoming Encounters Date Type Department Care Team (Late st Contact Info) Description 06/02/2025 2:30 PM EDT Office Visit [facility] MEDICINE [address], [place] [phone] Marjorie Bradford MD [address] [place] [address] [phone] 07/14/2025 4:00 PM EDT Office Visit [facility] [address], [place] [phone] Tosin Becerril [address], [place] [phone] documented as of this encounter Procedures Procedure Name Priority Date/Time Associated Diagnosis Comments MAMMOGRAPHY Routine 08/08/2024 documented in this encounter Results * Mammography (08/08/2024) Mammogram Normal Normal, Abnormal, BIRADS 1 , BIRADS 2 Anatomical Region Laterality Modality Other 08/08/2024 us Historical Provider HEALTH MAINTENANCE Final Result documented in this encounter Visit Diagnoses Not on filedocumented in this encounter Additional Health Concerns Assessment Noted Time PHQ-9 Depression Total Score: 0 02/29/20 23 11:17 AM EDT documented as of this encounter Care Teams Rock Climbing Instructor Relationship Specialty Start Date End Date Marjorie Bradford MD [address] [place] [address] [phone] PCP - General Family Medicine 11/17/22 documented as of this encounter
[2025-05-27 08:40] VITALS: BP 108/70; BMI 23.5
== END 2025-05-27 09:01 | disposition home or self-care (01) ==
LOC: HO.HWS 08:22
PROVIDERS: PCP Family Medicine; Visit Provider Advanced Practice Midwife
DX: Z01.419 Encounter for gynecological examination (general) (routine) without abnormal findings (principal)
CPT/HCPCS: 99396; 99459

== ENCOUNTER 2025-05-27 08:21 | Outpatient (REF) | payer OTHER, SELFPAY | END 2025-05-27 08:22 | disposition home or self-care (01) | LOC: HO.LNP 08:21 | PROVIDERS: PCP Family Medicine; Visit Provider Advanced Practice Midwife | DX: Z01.419 Encounter for gynecological examination (general) (routine) without abnormal findings (principal); Z11.51 Encounter for screening for human papillomavirus (HPV) | CPT/HCPCS: 87626; 88175; 99396 ==

== ENCOUNTER 2025-06-02 15:10 | Outpatient (REF) | payer OTHER, SELFPAY ==
--- OUTSIDE RECORDS SUMMARY | 2025-06-02 15:45 | XMS_ITS | Clinical Summary ---
Author Organization [facility] ity Address [address] [place] [address] Care Team Providers Care Casting Room Operator Name Role Phone Unavailable Primary Care Provider [...]
--- OUTSIDE RECORDS SUMMARY | 2025-06-02 15:45 | XMS_ITS | Encounter Summary ---
Author Organization [employer] Address [address] [facility] 7[address] [place] [address] Care Team Providers Care Adhesive Sprayer Name Role Phone Marjorie Bradford MD Primary Care Provider [phone] Encounter Details Date Type Department Care Team (Late st Contact Info) Description 08/09/2024 Abstract [facility] [address] [place] [address] Leslie Gamez [place] Social History Tobacco Use [...] with others, in a hotel, in a long term, living outside on the street, on a [...] Description 07/14/2025 4:00 PM EDT Office Visit [facility] [address] [place] [address] [phone] Tosin Becerril [address] [place], [place] [phone] documented as of this encounter Procedures Procedure Name Priority Date/Time Associated Diagnosis Comments MAMMOGRAPHY Routine 08/08/2024 documented in this encounter Results * Mammography (08/08/2024) Mammogram Normal Normal, Abnormal, BIRADS 1 , BIRADS 2 Anatomical Region Laterality Modality Other 08/08/2024 Historical Provider HEALTH MAINTENANCE Final Result documented in this encounter Visit Diagnoses Not on filedocumented in this encounter Additional Health Concerns Assessment Noted Time PHQ-9 Depression Total Score: 0 02/29/20 11:17 AM EDT documented as of this encounter Care Teams Adhesive Sprayer Relationship Specialty Start Date End Date Marjorie Bradford MD [address] [place] [id number] PCP - General Family Medicine 11/17/22 documented as of this encounter
[2025-06-02 16:33] LABS: MANUAL DIFF FLAG NO
[2025-06-02 16:54] LABS: Hematocrit 34.8 % (37.0-47.0); Hemoglobin 11.6 g/dl (12.0-16.0); Imm Gran Abs Auto 0.03 X10*3/uL (0.00-0.03); Imm Gran Pct Auto 0.4 % (0.0-0.4); Lymphocytes Absolute Auto 2.0 X10*3/uL (1.2-4.9); Mean Corpuscular HGB Conc 33.3 g/dl (31.0-35.0); Mean Corpuscular Hemoglobin 29.2 pg (27.0-33.0); Mean Corpuscular Volume 87.7 fL (80.0-98.0); NRBC Abs Auto 0.000 X10*3/uL (0.0-0.012); NRBC Pct Auto 0.0 /100WBC (0.0-0.2); Platelet Count 207 X10*3/uL (160-400); Red Blood Count 3.97 X10*6/uL (4.20-5.50); White Blood Count 6.9 X10*3/uL (4.8-10.8)
[2025-06-02 17:08] LABS: Hemoglobin A1C 110.2998 umol/L; Total Hemoglobin (HGBA1C) 3140.9758 umol/L
[2025-06-02 17:37] LABS: Cholesterol 190 mg/dL (<200); HDL Cholesterol 53 mg/dL (>40); Triglycerides 94 mg/dL (<150)
[2025-06-02 17:53] LABS: Reflex LDLD? No
[2025-06-02 18:06] LABS: INTERNATIONAL NORM RATIO 1.0 (0.9-1.1); Prothrombin Time 11.7 SEC (10.9-12.4)
[2025-06-02 18:09] LABS: Partial Thromboplastin Time 31.5 SEC (26.7-34.1)
== END 2025-06-02 15:11 | disposition home or self-care (01) ==
LOC: HO.HHCL 15:10
PROVIDERS: PCP Family Medicine; Visit Provider Family Medicine
DX: Z13.1 Encounter for screening for diabetes mellitus (principal); Z13.220 Encounter for screening for lipoid disorders; R23.3 Spontaneous ecchymoses; E55.9 Vitamin D deficiency, unspecified; Z86.2 Personal history of diseases of the blood and blood-forming organs and certain disorders involving the immune mechanism
CPT/HCPCS: 36415; 80061; 82306; 83036; 85025; 85610; 85730

== ENCOUNTER 2025-06-06 14:55 | Outpatient (REF) | payer OTHER, SELFPAY ==
--- OUTSIDE RECORDS SUMMARY | 2025-06-06 14:57 | XMS_ITS | Clinical Summary ---
Author Organization [facility] ity Address [address] [place] [address] Care Team Providers Care Continuous Pillowcase Cutter Name Role Phone Unavailable Primary Care Provider [...]
--- OUTSIDE RECORDS SUMMARY | 2025-06-06 14:57 | XMS_ITS | Encounter Summary ---
Author Organization [employer] Address [address] [facility] [address] [place] [address] Care Team Providers Care Handbag Parts Cutter Name Role Phone Marjorie Bradford MD Primary Care Provider [phone] Reason for Visit * Reason Onset Date Comments Results 06/05/2025 Encounter Details Date Type Department Care Team ([facility] st Contact Info) Description 06/05/2025 Results Follow-Up [facility] [address] [place] [address] Marjorie Bradford MD [address] [place] [address] CBC auto differential, Lipid Panel with Reflex to Direct LDL, Vitamin D, 25-Hydroxy, Total, Immunoassay, Additional followed-up results: 3 Social History Tobacco Use Types Packs/Day Years [...] is your housing situation today? I have fatimah kirk 06/03/[address] you [...] PM EST documented as of this encounter Miscellaneous Notes * Telephone Encounter - Mariza Painter RN - 06/05/2025 10:53 AM EDT TC placed to the pt to inform of the result message below regarding pt most recent blood work on 06/02/2025. The pt was advised that most results were WNL besides mild anemia and slightly elevated LDLcholesterol. Pt was informed that PCP does not feel the need to start the pt on a statin medicationbut that cholesterol levels can go down through dietary modifications alone. Pt advised of additional labs ordered to rule out iron deficiency anemia. Pt instructed that this can be performed at [facility] or [facility]. Pt agreeable to these results and POC and had no further questions at this time. ----- Message from Marjorie Bradford MD sent at 06/05/2025 10:43 AM EDT ----- Please inform patient that she has very mild anemia, but her platelet was normal. Vitamin D level was normal. Very slightly elevated LDL cholesterol, but no need to start a statin. Normal kidney and liver function. Encourage to eat well-balanced diet. Ordered lab to check iron deficiency. Thank you. ----- Message ----- From: Interface, Lab Results In Sent: 06/02/2025 4:55 PM EDT To: Marjorie Bradford MD documented in this encounter Plan of Treatment Upcoming Encounters Date Type Department Care Team (Late st Contact Info) Description 07/14/2025 4:00 PM EDT Office Visit [facility] [address] [place] [address] [phone] Tosin Becerril [address] [place], [place] [phone] documented as of this encounter Visit Diagnoses Not on filedocumented in this encounter Additional Health Concerns Assessment Noted Time PHQ-9 Depression Total Score: 0 06/03/20 25 1:28 PM EDT documented as of this encounter Care Teams Handbag Parts Cutter Relationship Specialty Start Date End Date Marjorie Bradford MD [address] [place] [address] [phone] PCP - General Family Medicine 11/17/22 documented as of this encounter
--- OUTSIDE RECORDS SUMMARY | 2025-06-06 14:57 | XMS_ITS | Clinical Summary ---
Author Organization [facility] Address [address] [place] [address] Phone Care Team Providers Care Actor Understudy Name Role Phone Unavailable Primary Care Provider Unavailabl e Encounters Date Type Department Care Team Description 04/10/2025 Orders Only [facility] Genetics Metabolism [address] [place] [address] Edelmira Farr, CHADD Encounter for [...] al Result [facility] [address] [place] [id number], [place] [phone] from Last 3 Months
[2025-06-06 15:25] LABS: Reticulocytes Absolute 0.060 X10*6/uL (0.026-0.095)
[2025-06-06 16:48] LABS: Ferritin 24 ng/mL (10-250); Iron 61 mcg/dL (30-160); Percent Iron Saturation 25 % (15-50); Total Iron Binding Capacity 246 mcg/dL (228-428); Unsaturated Iron Binding 185 ug/dL
[2025-06-06 17:08] LABS: Folate 12.9 ng/mL (> or = 4.0); Vitamin B12 642 pg/mL (200-900)
== END 2025-06-06 14:56 | disposition home or self-care (01) ==
LOC: HO.LAB 14:55
PROVIDERS: PCP Family Medicine; Visit Provider Family Medicine
DX: D64.9 Anemia, unspecified (principal)
CPT/HCPCS: 36415; 82607; 82728; 82746; 83540; 85045

== ENCOUNTER → 2025-06-11 13:45 | Outpatient (BNV) | payer OTHER, SELFPAY | PROVIDERS: PCP Family Medicine; Visit Provider Radiology Body Imaging | DX: Z12.31 Encounter for screening mammogram for malignant neoplasm of breast (principal) | CPT/HCPCS: 77063; 77067 ==

== ENCOUNTER 2025-06-11 13:55 | Outpatient (REF) | payer OTHER, SELFPAY ==
--- OUTSIDE RECORDS SUMMARY | 2025-06-02 14:30 | XMS_ITS | Encounter Summary ---
Author Organization [employer] Address [address] [place] [address] Care Team Providers Care Director Of Exhibits Name Role Phone Marjorie Bradford MD Primary Care Provider [phone] Reason for Referral * Consultation (Routine) - Closed Specialty Diagnoses / Procedures Referred By Flash haji Referred To Contact Physical Therapy Diagnoses Chronic pain of right knee Marjorie Bradford MD [address] [place] [address] Phone: tel: fax: [facility] [address] [address] Phone: tel: fax: Referral ID Status Reason Start Date Expiration Date V isits Requested Visits Authorized [id number] Closed Specialty Services Required 06/06/2025 06/06/2026 1 1 Encounter Details Date Type Department Care Team (Latest Contact Info) Description 06/02/2025 2:30 PM EDT Office Visit [facility] MEDICINE [address] [place], [place] [phone] Marjorie Bradford MD [address] [place], [place] [phone] Routine general medical examination at a health care facility (Primary Dx); Screening for lipid disorders; Screening for diabetes mellitus; Vitamin D deficiency; History of idiopathic thrombocytopenic purpura; Bruises easily; Screening for colon cancer; Chronic pain of right knee; Mass of upper outer quadrant of left breast; Bilateral leg pain; Right carpal tunnel syndrome; Status post carpal tunnel release Social History Tobacco Use Types Packs/Day Years Used Date Smoking Tobacco: Never Passive Smoke Exposure: Never Smokeless Tobacco: Never Alcohol Use Standard Drinks/Week Comments Never 0 (1 standard drink = 0.6 oz pur e alcohol) Depression Answer Date Recorded Patient Health Questionnaire-9 Score 0 06/03/2025 Patient Health Questionnaire-9 Score 0 06/03/2025 Last PHQ-9: Questionnaire Data Not on file 0 06/03/2025 Housing Stability Answer Date Recorded What is your housing situation today? I have fatimahnani kirk 06/03/[address] you li ve. Do you have problems with any of the following? None of the above 06/03/2025 Food Insecurity Answer Date Recorded Within the past 12 months, y ou worried that your food would run out before you got money to buy more: Never True 06/03/2025 Within the past 12 months,th e food you bought just didn't last and you didn't have enough money to get more: Never True Transportation Answer Date Recorded In the past 12 months, has l ack of transportation kept you from medical appts, meetings, work or from getting things needed for daily living? No 06/03/2025 Utilities Answer Date Recorded In the past 12 months, has t he electric, gas, oil or water company threatened to shut off services in your home? No 06/03/2025 Depression Answer Date Recorded Patient Health Questionnaire-2 Score 0 06/03/2025 Internet Access Answer Date Recorded Internet Access Q1 Yes 06/03/2025 Internet Access Q2 Not on file 06/03/2025 Comments Unknown Sex and Gender Information Value Date Recorded Sex Assigned at Female 08/15/2022 10:32 AM EDT Legal Sex Female 10:32 AM EDT Gender Identity Female 08/15/2022 10:32 AM EDT Sexual Orientation Straight 09/27/2022 6: 59 PM EST documented as of this encounter Last Filed Vital Signs Vital Sign Reading Time Taken Comments Blood Pressure 110/70 06/02/2025 2:39 PM EDT Pulse 84 06/02/2025 2:39 PM EDT Temperature 36.2 C (97.1 F) 06/02/2025 2:39 PM EDT Respiratory Rate 15 06/02/2025 2:39 PM EDT Oxygen Saturation 99% 06/02/2025 2:39 PM EDT Inhaled Oxygen Concentration - - Weight 65.5 kg (144 lb 6.4 oz) 06/02/2025 2:39 P M EDT Height 162.6 cm (5' 4 ) 06/02/2025 2:39 PM EDT Body Mass Index 24.79 06/02/2025 2:39 PM EDT documented in this encounter Functional Status * Over the past 2 weeks, how often have you been bothered by any of the following problems? Question Answer Date of Assessment Author Patient Health Questionnaire -2 Score 0 06/03/2025 1:28 PM EDT Geeta Gamez MA * Little interest or pleasure in doing things Answer Date of Assessment Author Not at all 06/03/2025 1:28 PM EDT Leslie Gamez MA * Feeling down, depressed, or hopeless Answer Date of Assessment Author Not at all 06/03/2025 1:28 PM EDT Leslie Gamez MA * Trouble falling or staying asleep, or sleeping too much Answer Date of Assessment Author Not at all 06/03/2025 1:28 PM EDT Leslie Gamez MA * Feeling tired or having little energy Answer Date of Assessment Author Not at all 06/03/2025 1:28 PM EDT Leslie Gamez MA * Poor appetite or overeating Answer Date of Assessment Author Not at all 06/03/2025 1:28 PM EDT Leslie Gamez MA * Feeling bad about yourself - or that you are a failure or have let yourself or your family down Answer Date of Assessment Author Not at all 06/03/2025 1:28 PM EDT Leslie Gamez MA * Trouble concentrating on things, such as reading the newspaper or watching television Answer Date of Assessment Author Not at all 06/03/2025 1:28 PM EDT Leslie Gamez MA * Moving or speaking so slowly that other people could have noticed? Or the opposite - being so fidgety or restless that you have been moving around a lot more than usual. Answer Date of Assessment Author Not at all 06/03/2025 1:28 PM EDT Leslie Gamez MA * Thoughts that you would be better off or hurting yourself in some way Answer Date of Assessment Author Not at all 06/03/2025 1:28 PM EDT Leslie Gamez MA * Patient Health Questionnaire-9 Score Answer Date of Assessment Author 0 06/03/2025 1:28 PM EDT Leslie Gamez MA documented as of this encounter Progress Notes * Marjorie Bradford MD - 06/02/2025 2:30 PM EDT Alexia Hazel is a 44 y.o. female who presents for physical exam. Subjective Our last encounter was 08/29/2023. Interval history: Mammography in Jul 2024 BI-RADS 1 Seen by SPRING LAYER on 05/27/2025 for [facility]ING [facility]ER exam. PAP / cotest normal. Today: Patient states overall she is doing well. No fatigue. Sleeping well. Patient is concerned about several bruises on her body result any injury. She has a history of idiopathic thrombocytopenic purpura, therefore, she is concerned of recurrence. Patient reports right knee pain, which is chronic. No recent injury. Has not noticed any swelling or increased warmth. Past medical history / Active problems: Patient Active Problem List Diagnosis Date Noted Chronic pain of right knee 06/06/2025 Status post carpal tunnel release 06/06/2025 History of gestational diabetes 06/06/2025 Chronic fatigue 03/04/2023 Bilateral leg pain 03/04/2023 Bilateral leg cramps 03/04/2023 Vitamin D deficiency 03/03/2023 Hemorrhoids 03/03/2023 History of idiopathic thrombocytopenic purpura 11/18/2022 Right carpal tunnel syndrome 11/18/2022 Mass of upper outer quadrant of left breast 11/18/2022 Past surgical history: Past Surgical History: 05/30/2024: CARPAL TUNNEL RELEASE; Right Current Outpatient Medications Medication Instructions acetaminophen (Tylenol) 500 MG tablet take 1 tablet (500MG) by oral route every 6 hours as needed cholecalciferol 25 MCG (1000 UT) tablet TAKE 1 TABLET (25 MCG) BY MOUTH IN THE MORNING Hydrocortisone, Perianal, 1 % cream Apply to affected area once daily ibuprofen 800 MG tablet 1 tablet, Oral, Every 8 hours terbinafine (LamISIL AT) 1 % cream Apply to affected areas of your feet every night Allergies[1] Family History[2] Social history: Social History Socioeconomic History Marital status: Spouse name: Not on file Number of children: Not on file Years of education: Not on file Highest education level: Not on file Occupational History Not on file Tobacco Use Smoking status: Never Passive exposure: Never Smokeless tobacco: Never Substance and Sexual Activity Alcohol use: Never Drug use: Never Sexual activity: Defer Other Topics Concern Not on file Social History Narrative Not on file Social Drivers of Health Food Insecurity: Low Risk (06/03/2025) Food Insecurity Within the past 12 months, you worried that your food would run out before you got money to buy more:: Never True Within the past 12 months,the food you bought just didn't last and you didn't have enough money to get more: : Never True Transportation Needs: Low Risk (06/03/2025) Transportation In the past 12 months, has lack of transportation kept you from medical appts, meetings, work or from getting things needed for daily living? : No Intimate Partner Violence: Not on file Housing Stability: Low Risk (06/03/2025) Housing Stability What is your housing situation today?: I have housing Think about the place you live. Do you have problems with any of the following? 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 05/27/2025 PAP / cotest normal. Bone health: Risk factors for osteoporosis: none DEXA: start at age for average risk Advanced care planning: HCP MOLST Review of Systems Constitutional: Negative for activity change, appetite change and fever. Respiratory: Negative for shortness of breath. Cardiovascular: Negative for chest pain. Objective Vitals: 06/02/25 1439 BP: 110/70 Pulse: 84 Resp: 15 Temp: 97.1 ??F (36.2 ??C) TempSrc: Temporal SpO2: 99% Weight: 144 lb 6.4 oz (65.5 kg) Height: 5' 4 (1.626 m) Physical Exam Constitutional: General: She is not in acute distress. Appearance: Normal appearance. She is not ill-appearing. HENT: Head: Normocephalic and atraumatic. Mouth/Throat: Mouth: Mucous membranes are moist. Eyes: Extraocular Movements: Extraocular movements intact. Pupils: Pupils are equal, round, and reactive to light. Cardiovascular: Rate and Rhythm: Normal rate and regular rhythm. Heart sounds: No murmur heard. Pulmonary: Effort: Pulmonary effort is normal. No respiratory distress. Breath sounds: Normal breath sounds. No wheezing or rhonchi. Skin: General: Skin is warm. Neurological: Mental Status: She is alert. Mental status is at baseline. Psychiatric: Mood and Affect: Mood normal. Results: Lab Results Component Value Date NA 137 11/17/2022 K 3.9 11/17/2022 CL 103 11/17/2022 CO2 29 11/17/2022 BUN 13 11/17/2022 CREATININE 0.53 11/17/2022 EGFR 118 11/17/2022 GLUCOSE 87 11/17/2022 TOTALBILIRUB 0.5 11/17/2022 AST 13 11/17/2022 ALT 8 11/17/2022 Lab Results Component Value Date TRIG 94 06/02/2025 CHOL 190 06/02/2025 LDLCHOLCAL 119 (H) 06/02/2025 HDL 53 06/02/2025 Lab Results Component Value Date HGBA1C 5.4 06/02/2025 Lab Results Component Value Date WBC 6.9 06/02/2025 HGB 11.6 (L) 06/02/2025 HCT 34.8 (L) 06/02/2025 PLT 207 06/02/2025 MCV 87.7 06/02/2025 The 10-year ASCVD risk score (Denis GONZALES, et al., 2019) is: 0.6% Values used to calculate the score: Age: 44 years Sex: Female Is Non- : No Diabetic: No Tobacco smoker: No Systolic Blood Pressure: 110 mmHg Is BP treated: No HDL Cholesterol: 53 mg/dL Total Cholesterol: 190 mg/dL Screening and Health Care Maintenance: PHQ-2/9 Score: Patient Health Questionnaire-9 Score: 0 (06/03/2025 1:28 PM) Patient Health Questionnaire-2 Score: 0 (06/03/2025 1:28 PM) Thoughts that you would be better off or hurting yourself in some way: Not at all (06/03/2025 1:28 PM) RADHA-7 Score: No data recorded Assessment/Plan 1. Routine general medical examination at a health care facility (Primary) 2. Screening for lipid disorders - Lipid Panel with Reflex to Direct LDL; Future - Lipid Panel with Reflex to Direct LDL 3. Screening for diabetes mellitus - Hemoglobin A1c; Future - Hemoglobin A1c 4. Vitamin D deficiency Assessment & Plan: - 11/17/22 vitamin D 25, insufficiency level - continue vitamin D supplement Orders: - Vitamin D, 25-Hydroxy, Total, Immunoassay; Future - Vitamin D, 25-Hydroxy, Total, Immunoassay 5. 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 Bruises easily Comments: - check lab. Minimize NSAIDs use. Orders: - CBC auto differential; Future - CBC auto differential - Prothrombin Time-INR; Future - Partial Thromboplastin Time, Activated (APTT); Future - Prothrombin Time-INR - Partial Thromboplastin Time, Activated (APTT) 7. Screening for colon cancer - Cologuard?? colon cancer screening 8. Chronic pain of right knee Assessment & Plan: - refer to PT Orders: - Referral to Physical Therapy; Future - Referral to Physical Therapy 9. Mass of upper outer quadrant of left breast Assessment & Plan: - 01/26/21 US-guided core biopsy Differential Dx includes fibroadenoma and phyllodes tumor, and excisional biopsy was recommended. - 05/16/22 Mammography BI-RADS 0 - 07/29/22 The lesion at 11 o'clock is smaller. - 8/15/23 Mammography BI-RADS 2 - 08/09/24 Diagnostic mammo BI-RADS 1 10. Bilateral leg pain Assessment & Plan: - stretching exercise - refer to PT for right knee pain 11. Right carpal tunnel syndrome Assessment & Plan: - s/p carpal tunnel release surgery by Dr. Harry on 05/30/24 - wear brace at night - activity modification 12. Status post carpal tunnel release Assessment & Plan: - right - 05/30/[address] Daisy Harry Follow-up: 1 year or sooner if any problem arises. Scribe Attestation: IMasha, am serving as a scribe to document services personally performed by Marjorie Bradford MD, based on the patient's response to questions by provider and provides statements to me. [1] No Known Allergies [2] Family History Problem Relation Name Age of Onset Lung cancer Mother documented in this encounter Miscellaneous Notes * Assessment & Plan Note - Marjorie Bradford MD - 06/06/2025 6:13 PM EDTAssociated Problem(s): Status post carpal tunnel release - right - 05/30/[address] Daisy Harry * Assessment & Plan Note - Marjorie Bradford MD - 06/06/2025 6:07 PM EDTAssociated Problem(s): Chronic pain of right knee - refer to PT * Assessment & Plan Note - Marjorie Bradford MD - 06/06/2025 6:07 PM EDTAssociated Problem(s): Right carpal tunnel syndrome - s/p carpal tunnel release surgery by Dr. Harry on 05/30/24 - wear brace at night - activity modification * Assessment & Plan Note - Marjorie Bradford MD - 06/06/2025 6:05 PM EDTAssociated Problem(s): Bilateral leg pain - stretching exercise - refer to PT for right knee pain * Assessment & Plan Note - Marjorie Bradford MD - 06/06/2025 6:05 PM EDTAssociated Problem(s): Mass of upper outer quadrant of left breast - 01/26/21 US-guided core biopsy Differential Dx includes fibroadenoma and phyllodes tumor, and excisional biopsy was recommended. - 05/16/22 Mammography BI-RADS 0 - 07/29/22 The lesion at 11 o'clock is smaller. 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 - most recent CBC in Nov 2022 showed normal CBC with platelet 210K documented in this encounter Plan of Treatment Upcoming Encounters Date Type Department Care Team (Late st Contact Info) Description 07/14/2025 4:00 PM EDT Office Visit [facility] [address] [place] [address] Jone Tosin [address] [place], [place] [phone] Scheduled Orders Name Type Priority Associated Diagnoses Orde r Schedule Cologuard colon cancer screening Lab Routine Screening for colon cancer Ordered: 06/06/2025 Scheduled Referrals Name Type Priority Associated Diagnoses Orde r Schedule Referral to Physical Therapy Outpatient Referral Routine Chronic pain of right knee Expected: 06/06/2025 (Approximate), Expires: 06/02/2026 documented as of this encounter Procedures Procedure Name Priority Date/Time Associated Diagnosis Comments VITAMIN D,25-OH,TOTAL,IA Routine 06/02/2025 3:22 PM EDT Vitamin D deficiency LIPID PANEL WITH REFLEX TO DIRECT LDL Routine 06/02/2025 3:22 PM EDT Screening for lipid disorders CBC WITH AUTO DIFFERENTIAL Routine 06/02/2025 3:22 PM EDT History of idiopathic thrombocytopenic purpura Bruises easily APTT Routine 06/02/2025 3:22 PM EDT Bruises easily PROTHROMBIN TIME-INR Routine 06/02/2025 3:22 PM EDT Bruises easily HEMOGLOBIN A1C Routine 06/02/2025 3:22 PM EDT Screening for diabetes mellitus documented in this encounter Results * Partial Thromboplastin Time, Activated (APTT) (06/02/2025 3:22 PM EDT) Partial Thromboplastin Time 31.5 26.7 - 34.1 SEC [facility] Blood Venous blood specimen / Unknown 06/02/2025 3:22 PM EDT 06/02/2025 4:27 PM EDT us Marjorie Bradford MD LAB BLOOD ORDERABLES Final Resul t [facility] [address] [place] [phone] * Prothrombin Time-INR (06/02/2025 3:22 PM EDT) Prothrombin Time 11.7 10.9 - 12.4 SEC [facility] INTERNATIONAL NORM RATIO 1.0 0.9 - 1.1 [facility] Comment:INTERNATIONAL NORMAL IZED RATIO (INR) REFERENCE RANGES Reference RangeFor patients not on anticoagulant therapy: 0.9 - 1.1INR ranges for oral anticoagulanttherapy:For prevention and treatment of venous thrombosis and pulmonary embolism: 2.0 - 3.0For acute myocardial infarction with aspirin therapy: 2.0 - 3.0For acute myocardial infarction without aspirin therapy: 3.0 - 4.0For patients with mechanical prosthetic heart valves: 2.5 - 3.5 Blood Venous blood specimen / Unknown 06/02/2025 3:22 PM EDT 06/02/2025 4:27 PM EDT us Marjorie Bradford MD LAB BLOOD ORDERABLES Final Resul t [facility] [address] [place] [phone] * Hemoglobin A1c (06/02/2025 3:22 PM EDT) Hemoglobin A1c 5.4 <6.0 % [facility] Comment:Hemoglobin A1C Refer ence Range Adults: 4.8 - 6.0 % Non diabetic: < 6.0 % Goal: < 7.0 %Additional Action Suggested: > 8.0 %Note: Hemoglobin A1c results are invalid for patients with abnormal amounts of HbF. Blood transfusions may impact the HbA1c concentration in the patient sample. Estimated Average Glucose 108 mg/dL [facility] Comment:eAG = Estimated ave rage glucose which is %A1C expressed asaverage glucose, using the formula of the Z5M-DzqwqesNvnisvr Glucose study (ADAG), Diabetes Care, Vol.31,#8,2007 Blood Venous blood specimen / Unknown 06/02/2025 3:22 PM EDT 06/02/2025 4:27 PM EDT us Marjorie Bradford MD LAB BLOOD ORDERABLES Final Resul t Performing Organization Address City/[facility]/ZIP Co de Phone Number [facility] [address] [place] [address] [phone] * Vitamin D, 25-Hydroxy, Total, Immunoassay (06/02/2025 3:22 PM EDT) Vitamin D 25-OH Total 32.4 >30 ng/mL [facility] Comment: Health Based Reference Values*< 20 ng/mL [id number] ng/mL Insufficient> 30 ng/mL Sufficient*Randall CLARKE. N Engl J Med. 2007;357:266-280There is no well-established upper level of normal vitamin Dlevels. Some laboratories use 50 ng/mL as an upper limit ofnormal. However, toxicity is patient-dependent and may occurat any level. Careful correlation with the patient'spresentation is necessary and, if there is concern forvitamin D toxicity, treatment should be consideredirrespective of the serum level.Care must be taken in interpreting Vitamin D results fromdifferent laboratories and methodologies. Published datademonstrated that results from patients undergoinghemodialysis may show a negative bias when tested withvarious automated 25-OH vitamin D assays when compared toLC-MS/MS.When testing samples from patients whose predominant form ofVitamin D is Vitamin D2, such as patients receiving VitaminD2 supplementation, results that are subtherapeutic shouldbe confirmed with another method such as LC-MS/MS. Blood Venous blood specimen / Unknown 06/02/2025 3:22 PM EDT 06/02/2025 4:27 PM EDT Marjorie Bradford MD LAB BLOOD ORDERABLES Final Resul t Performing Organization Address [facility]/ZIP Co de Phone Number [facility] [address] [place] [phone] * (ABNORMAL) Lipid Panel with Reflex to Direct LDL (06/02/2025 3:22 PM EDT) Triglycerides 94 <150 mg/dL [facility] Comment:Desirable Triglyceri de: less than 150 mg/dLBorderline High Triglyceride 150-199 mg/dLHigh Triglyceride: 200-499 mg/dLVery High Triglyceride: greater than or equal to 5OO mg/dL Cholesterol 190 <200 mg/dL [facility] Comment:Desirable Cholestero l: less than 200 mg/dLBorderline High Cholesterol: 200-239 mg/dLHigh Cholesterol: greater than 239 mg/dL LDL Cholesterol Calculated 119(H) <100 mg/dL [facility] Comment:Desirable LDL: less than 100 mg/dLNear Optimal/Above Optimal LDL: 110- 129 mg/dLBorderline High LDL: 130-159 mg/dLHigh LDL: 160-189 mg/dLVery High LDL: greater than or equal to 190 mg/dL HDL Cholesterol 53 >40 mg/dL [facility] Comment:Desirable HDL: great er than 40 mg/dL Note: This HDL assay may give artificially low results in patients with liver disease. Blood 06/02/2025 3:22 PM EDT 06/02/2025 4:27 PM EDT us Marjorie Bradford MD LAB BLOOD ORDERABLES Final Resul t [facility] [address] [place] [phone] * (ABNORMAL) CBC auto differential (06/02/2025 3:22 PM EDT) White Blood Count 6.9 4.8 - 10.8 X10*3/uL [facility] Red Blood Count 3.97(L) 4.20 - 5.50 X10*6/uL [facility] Hemoglobin 11.6(L) 12.0 - 16.0 g/dl [facility] Hematocrit 34.8(L) 37.0 - 47.0 % [facility] Mean Corpuscular Volume 87.7 80.0 - 98.0 fL [facility] Mean Corpuscular Hemoglobin 29.2 27.0 - 33.0 pg [facility] Mean Corpuscular HGB Conc 33.3 31.0 - 35.0 g/dl [facility] Red Cell Distribution Width 13.1 11.0 - 16.0 % [facility] Platelet Count 207 160 - 400 X10*3/uL [facility] Mean Platelet Volume 9.7 9.4 - 12.3 fL [facility] Neutrophils Percent Auto 62.9 45 - 73 % [facility] Imm Gran Pct Auto 0.4 0.0 - 0.4 % [facility] Lymphocytes Percent Auto 28.4 20 - 40 % [facility] Monocytes Percent Auto 6.2 2 - 11 % [facility] Eosinophils Percent Auto 1.2 0 - 4 % [facility] Basophils Percent Auto 0.9 0 - 2 % [facility] NRBC Pct Auto 0.0 0.0 - 0.2 /100WBC [facility] Neutrophils Absolute Auto 4.4 2.0 - 8.3 x10*3/uL [facility] Imm Gran Abs Auto 0.03 0.00 - 0.03 X10*3/uL [facility] Lymphocytes Absolute Auto 2.0 1.2 - 4.9 X10*3/uL [facility] Monocytes Absolute Auto 0.4 0.1 - 1.2 X10*3/uL [facility] Eosinophils Absolute Auto 0.1 0.0 - 0.4 X10*3/uL [facility] Basophils Absolute Auto 0.1 0.0 - 0.2 X10*3/uL [facility] NRBC Abs Auto 0.000 0.0 - 0.012 X10*3/uL [facility] Blood Venous blood specimen / Unknown 06/02/2025 3:22 PM EDT 06/02/2025 4:27 PM EDT us Marjorie Bradford MD LAB BLOOD ORDERABLES Final Resul t [facility] [address] [place] [address] [phone] documented in this encounter Visit Diagnoses Diagnosis Routine general medical examination at a health care facility- Primary Screening for lipid disorders Screening for diabetes mellitus Vitamin D deficiency History of idiopathic thrombocytopenic purpura Bruises easily Other symptoms involving skin and integumentary tissues Screening for colon cancer Special screening for malignant neoplasms, colon Chronic pain of right knee Mass of upper outer quadrant of left breast Bilateral leg pain Pain in soft tissues of limb Right carpal tunnel syndrome Carpal tunnel syndrome Status post carpal tunnel release Other postprocedural status documented in this encounter Additional Health Concerns Assessment Noted Time PHQ-9 Depression Total Score: 0 06/03/20 25 1:28 PM EDT documented as of this encounter Care Teams Director Of Exhibits Relationship Specialty Start Date End Date Marjorie Bradford MD [address] [place] [address] PCP - General Family Medicine 11/17/22 documented as of this encounter
--- OUTSIDE RECORDS SUMMARY | 2025-06-11 14:48 | XMS_ITS | Encounter Summary ---
Author Organization [employer] Address [address] [facility] [address] [place] [address] Care Team Providers Care Drafter Seismograph Name Role Phone Marjorie Bradford MD Primary Care Provider [phone] Encounter Details Date Type Department Care Team (Latest Contact Info) Description 06/06/2025 Results Follow-Up [facility] [address] [place] [address] Marjorie Bradford MD [address] [place] [address] Ferritin, Reticulocyte Count, Vitamin B12 (Cobalamin) and Folate Panel, Serum, Iron And Total Iron Binding Capacity Social History Tobacco Use Types Packs/Day Years [...] Description 07/14/2025 4:00 PM EDT Office Visit [facility] [address] [place], [place] [phone] Tosin Becerril [address] [place], [place] [phone] documented as of this encounter Visit Diagnoses Not on filedocumented in this encounter Additional Health Concerns Assessment Noted Time PHQ-9 Depression Total Score: 0 06/03/20 25 1:28 PM EDT documented as of this encounter Care Teams Drafter Seismograph Relationship Specialty Start Date End Date Marjorie Bradford MD [address] [place] [id number] PCP - General Family Medicine 11/17/22 documented as of this encounter
--- OUTSIDE RECORDS SUMMARY | 2025-06-11 14:48 | XMS_ITS | Clinical Summary ---
Author Organization [facility] Address [address] [place] [address] Phone Care Team Providers Care Terminal Carman Name Role Phone Unavailable Primary Care Provider Unavailabl e Encounters Date Type Department Care Team Description 04/10/2025 Orders Only [facility] Genetics Metabolism [address] [place] [address] Edelmira Farr, CHADD Encounter for [...] al Result [facility] [address] [place] [id number], [place] [phone] from Last 3 Months
--- OUTSIDE RECORDS SUMMARY | 2025-06-11 14:48 | XMS_ITS | Clinical Summary ---
Author Organization [employer] Address [address] [facility] [address] [place] [address] Care Team Providers Care Metallurgical Analyst Name Role Phone Marjorie Bradford MD Primary Care Provider [phone] Allergies No known active allergies Medications acetaminophen (Tylenol) 500 MG tablet take 1 tablet (500MG) by oral route every 6 hours as needed 02/17/20 22 Active ibuprofen 800 MG tablet Take 1 tablet by mouth every 8 (eight) hours. 02/17/20 22 Active Hydrocortisone , Perianal, 1 % cream Apply to affected area once daily 28 g 1 02/29/20 23 Active terbinafine (LamISIL AT) 1 % cream Apply to affected areas of your feet every night 30 g 1 03/04/20 23 Active cholecalcifero l 25 MCG (1000 UT) tabletIndicati ons:Vitamin D deficiency TAKE 1 TABLET (25 MCG) BY MOUTH IN THE MORNING 90 tablet 3 12/05/19 24 Active ferrous sulfate (Fe Tabs) 325 (65 Fe) MG EC tablet Take 1 tablet by mouth every other day. Do not crush, chew, or split. 45 tablet 3 06/06/20 25 Active mirtazapine (Remeron) 7.5 MG tablet Take 1 tablet by mouth at bed time. 03/27/20 19 025 Discontinued(Me d list cleanup (will not trigger notification to Pharmacy)) cetirizine (ZyrTEC) 10 MG tablet Take 1 tablet (10 mg) by mouth in the morning. 30 tablet 2 01/25/20 24 025 Discontinued(Me d list cleanup (will not trigger notification to Pharmacy)) Active Problems Problem Noted Date Diagnosed Date Chronic pain of right knee 06/06/2025 Assessment & Plan (06/06/2025 6:07 PM EDT): - refer to PT Status post carpal tunnel release 06/06/2025 Assessment & Plan (06/06/2025 6:13 PM EDT): - right - 05/30/[address] Daisy Harry History of gestational diabetes 06/06/2025 Anemia 06/06/2025 Chronic fatigue 03/04/2023 Assessment & Plan (09/08/2023 7:15 AM EST): - check BREEZY / ESR / CRP - normal TSH in Nov 2022 - encouraged to continue staying physically active. - possible fibromyalgia Assessment & Plan (03/04/2023 5:41 PM EDT): - check BREEZY / ESR / CRP - normal TSH in Nov 2022 - encouraged to continue staying physically active. - possible fibromyalgia Bilateral leg pain 03/04/2023 Assessment & Plan (06/06/2025 6:05 PM EDT): - stretching exercise - refer to PT for right knee pain Assessment & Plan (09/08/2023 7:12 AM EST): - stretching exercise Assessment & Plan (03/04/2023 5:43 PM EDT): - stretching exercise Bilateral leg cramps 03/04/2023 Assessment & Plan (09/08/2023 7:13 AM EST): - stretching exercise - normal K in Nov 2022 - follow up in 12 mo or sooner prn Assessment & Plan (03/04/2023 5:42 PM EDT): - stretching exercise - normal K in Nov 2022 - follow up in 3-6 mo or sooner prn Vitamin D deficiency 03/03/2023 Assessment & Plan (06/05/2025 11:11 PM EDT): - 11/17/22 vitamin D 25, insufficiency level - continue vitamin D supplement Assessment & Plan (09/08/2023 7:13 AM EST): - 11/17/22 vitamin D 25, insufficiency level - continue vitamin D supplement Assessment & Plan (03/04/2023 5:36 PM EDT): - 11/17/22 vitamin D 25, insufficiency level - continue vitamin D supplement Hemorrhoids 03/03/2023 Assessment & Plan (03/04/2023 5:35 PM EDT): - avoid prolonged sitting - prevent constipation: fiber-rich diet - sitz bath - hydrocortisone cream and/or OTC medications (Zainab reinoso) History of idiopathic thrombocytopenic purpura 0 11/18/2022 Assessment & Plan (06/05/2025 11:10 PM EDT): - 12K in 2018 - Received prednisone treatment - Evaluated by datastage developer, last seen in 2020 - 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 - most recent CBC in Nov 2022 showed normal CBC with platelet 210K Assessment & Plan (09/08/2023 7:14 AM EST): - 12K in 2018 - Received prednisone treatment - Evaluated by datastage developer, last seen in 2020 - 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 - most recent CBC in Nov 2022 showed normal CBC with platelet 210K Assessment & Plan (03/04/2023 5:40 PM EDT): - 12K in 2018 - Received prednisone treatment - Evaluated by datastage developer, last seen in 2020 - 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 - judicious use of APAP - recommended to wear brace at night - activity modification - discussed about other treatment options such as referral to a specialist for steroid injection or possible surgery - consider trial of gabapentin in the future Assessment & Plan (11/18/2022 11:36 AM EST): - judicious use of NSAIDs - recommended to wear brace at night - activity modification - discussed about other treatment options such as referral to a specialist for steroid injection or possible surgery; Pt is not interested at this time - consider trial of gabapentin in the future Mass of upper outer quadrant of left breast 12/2022 Assessment & Plan (06/06/2025 6:05 PM EDT): - 01/26/21 US-guided core biopsy Differential Dx includes fibroadenoma and phyllodes tumor, and excisional biopsy was recommended. - 05/16/22 Mammography BI-RADS 0 - 07/29/22 The lesion at 11 o'clock is smaller. - 05/30/23 Mammography BI-RADS 2 - 08/09/24 Diagnostic mammo BI-RADS 1 Assessment & Plan (09/08/2023 7:14 AM EST): - 01/26/21 US-guided core biopsy Differential Dx includes fibroadenoma and phyllodes tumor, and excisional biopsy was recommended. - 05/16/22 Mammography BI-RADS 0 - 07/29/22 The lesion at 11 o'clock is smaller. - 05/30/23 Mammography BI-RADS 2 - Pt was seen by a breast surgeon. Pt was recommended to consider excisional biopsy if pt wants to know its pathology. Pt elected a watchful waiting. Assessment & Plan (03/04/2023 5:38 PM EDT): - 01/26/21 US-guided core biopsy Differential Dx includes fibroadenoma and phyllodes tumor, and excisional biopsy was recommended. - 05/16/22 Mammography BI-RADS 0 - 07/29/22 Breast US showed the lesion at 11 o'clock became smaller. - Pt was seen by Dr. Colunga most recently in January 2023. Agreed to reassess if pt needs an excisional biopsy after next mammography in May 2023 Assessment & Plan (11/18/2022 11:41 AM EST): - 01/26/21 US-guided core biopsy Differential Dx includes fibroadenoma and phyllodes tumor, and excisional biopsy was recommended. - 05/16/22 Mammography BI-RADS 0 - 07/29/22 The lesion at 11 o'clock is smaller. - Pt was seen by a breast surgeon. Pt was recommended to consider excisional biopsy if pt wants to know its pathology Encounters Date Type Department Care Team Description 06/06/2025 Orders Only [address] [address] Marjorie Bradford MD Anemia, unspecified type (Primary Dx) 06/06/2025 Results Follow-Up [address] [address] Marjorie Bradford MD Ferritin, Reticulocyte Count, Vitamin B12 (Cobalamin) and Folate Panel, Serum, Iron And Total Iron Binding Capacity 06/05/2025 Orders Only [address] [address] Marjorie Bradford MD Anemia, unspecified type (Primary Dx) 06/05/2025 Results Follow-Up [address] [address] Marjorie Bradford MD CBC auto differential, Lipid Panel with Reflex to Direct LDL, Vitamin D, 25-Hydroxy, Total, Immunoassay, Additional followed-up results: 3 06/03/2025 Telephone [facility] [place] [address] Marjorie Bradford MD Results 06/02/2025 2:30 PM EDT Office Visit [facility] [place] [address] Marjorie Bradford MD Routine general medical examination at a health care facility (Primary Dx); Screening for lipid disorders; Screening for diabetes mellitus; Vitamin D deficiency; History of idiopathic thrombocytopenic purpura; Bruises easily; Screening for colon cancer; Chronic pain of right knee; Mass of upper outer quadrant of left breast; Bilateral leg pain; Right carpal tunnel syndrome; Status post carpal tunnel release 06/02/2025 Travel 05/30/2025 Telephone [facility] [place] [address] Marjorie Bradford MD chart prep 05/30/2025 Results Follow-Up [facility] [place] [address] Marjorie Bradford MD Pap Smear 05/27/2025 Orders Only GENERIC EXTERNAL DATA DEPARTMENT Provider, Generic External Data 05/26/2025 Travel 04/30/2025 Telephone [facility] [place] [address] Marjorie Bradford MD santiago recall 04/28/[address] [address] Marjorie Bradford MD Appointment Request from Last 3 Months Immunizations Immunization Administration Dates Next Due Hep B, adult 02/21/2019,11/13/2018,09/26/2018 Influenza injectable quadriv alent IIV4 with preservative 07/06/2018 Influenza injectable quadriv alent preservative free 08/29/2023,11/17/2022,08/19/2021,09/07,12/02/2017 MMR 11/13/2018,09/26/2018 Meningococcal MCV4P [id number] 09/26/2018 Tdap 09/04/2018 Varicella 11/13/2018,09/26/2018 Family History Medical History Relation Name Comments Lung cancer Mother Relation Name Status Comments Mother Social History Tobacco Use Types Packs/Day Years Used Date Smoking Tobacco: Never Passive Smoke Exposure: Never Smokeless Tobacco: Never Tobacco Cessation:Counseling Given: Not Answered Alcohol Use Standard Drinks/Week Comments Never 0 [...] Orientation Straight 09/27/2022 6: 59 PM EST Last Filed Vital Signs Vital Sign Reading [...] Mass Index 24.79 06/02/2025 2:39 PM EDT Plan of Treatment Upcoming Encounters Date Type Department Care Team (Late st Contact Info) Description 07/14/2025 4:00 PM EDT Office Visit [facility] [address] [place] [phone] [address] [place] [address] Health Maintenance Due Date Last Done Comments CT Colonography 1980 Colonoscopy 1979 Colorectal Cancer Screening 1979 Dental X-Ray: Full Mouth 1979 FIT DNA/Cologuard 1979 FIT 1980 FOBT 1980 Sigmoidoscopy 1979 Alcohol/Substance Use Screening 1991 Family Planning (PISQ) 1994 HPV Vaccines (1 - 3-dose series) 1994 Hepatitis C Screening 1997 COVID-19 Vaccine ( season) 2024 04/13/2021, 03/23/2021 Influenza Vaccine (#1) 2025 , 11/17/2022, 08/19/2021, Additional history exists Dental Oral Exam 07/11/2025 01/07/2025, 09/22/2022 Dental Prophylaxis 07/11/2025 01/07/2025, 09/22/2022 Dental X-Ray: Bitewings 01/08/2026 01/07/2025 Disability Screening 05/26/2026 05/26/2025 Tobacco Screening 06/02/2026 06/02/2025 Depression Screening 06/03/2026 06/03/2025, 06/03/20 25 SDOH Screening 06/03/2026 06/03/2025 Mammogram 08/08/2026 08/08/2024, 1001/2024, 06/05/2024, Additional history exists DTaP/Tdap/Td Vaccines (2 - Td or Tdap) 09/04/2028 09/04/2018 Zoster Vaccines (1 of 2) 2029 Cervical Cancer Screening 05/27/2030 HPV/Cotest 05/27/2030 05/27/2025, 11/28/2019 Pap Smear 05/27/2030 05/27/2025, 11/28/2019 RSV Patients and Patients Aged 60 years or older (1 - 1-dose 75+ series) 2054 Meningococcal Vaccine Aged Out 09/26/2018 No aileen sara eligible based on patient's age to complete this topic Hepatitis B Vaccines Completed 02/21/2019, 11/13/2018, 09/26/2018 HIV Screening Completed 09/14/2020 HIB Vaccines Aged Out No longer eligi [...] age to complete this topic Pneumococcal Vaccine: Pediatrics (0 to 5 Years) and At-Risk Patients (6 to 49) Years Aged Out No longer eligible based on patient's age to complete this topic RSV under 20 months Aged Out No longe r eligible based on patient's age to complete this topic Rotavirus Vaccines Aged Out No longer eligible based on patient's age to complete this topic Procedures Procedure Name Priority Date/Time Associated Diagnosis Comments IRON AND TOTAL IRON BINDING CAPACITY Routine 06/06/2025 3:00 PM EDT Anemia, unspecified type VITAMIN B12/FOLATE, SERUM PANEL Routine 06/06/2025 3:00 PM EDT Anemia, unspecified type RETICULOCYTE COUNT Routine 06/06/2025 3: 00 PM EDT Anemia, unspecified type FERRITIN Routine 06/06/2025 3:00 PM EDT Anemia, unspecified type APTT Routine 06/02/2025 3:22 PM EDT Bruises easily PROTHROMBIN TIME-INR Routine 06/02/2025 3:22 PM EDT Bruises easily HEMOGLOBIN A1C Routine 06/02/2025 3:22 PM EDT Screening for diabetes mellitus VITAMIN D,25-OH,TOTAL,IA Routine 06/02/2025 3:22 PM EDT Vitamin D deficiency LIPID PANEL WITH REFLEX TO DIRECT LDL Routine 06/02/2025 3:22 PM EDT Screening for lipid disorders CBC WITH AUTO DIFFERENTIAL Routine 06/02/2025 3:22 PM EDT History of idiopathic thrombocytopenic purpura Bruises easily PAP SMEAR Routine 05/27/2025 9:15 AM EDT HPV DNA, LOW/HIGH RISK Routine 05/27/2025 9:15 AM EDT PROPHYLAXIS - ADULT Routine 01/07/2025 4 :00 PM EDT BITEWINGS - 4 RADIOGRAPHIC IMAGES Routine 01/07/2025 4:00 PM EDT PERIODIC ORAL EVALUATION - ESTABLISHED PATIENT Routine 01/07/2025 4:00 PM EDT BI MAMMOGRAM DIAGNOSTIC TOMOSYNTHESIS BILATERAL Routine 08/08/2024 2:16 PM EDT ZZZ HISTORICAL HIV AB/AG Routine 09/14/2020 10:35 AM EST from Last 3 Months or Most Recently Relevant to Health Maintenance Results * Vitamin B12 (Cobalamin) and Folate Panel, Serum (06/06/2025 3:00 PM EDT) Vitamin B12 642 200 - 900 pg/mL [facility] Comment:NORMAL 200-900 PG/ML INDETERMINATE 160-199 PG/ML DEFICIENT < 160 PG/ML Folate 12.9 > or = 4.0 ng/mL [facility] Comment:Reference Values:> o r = 4.0 ng/mL< 4.0 ng/mL suggests folate deficiency Methotrexate, aminopterin and folinic acid(leucovorin) are chemotherapeutic agents whose molecularstructures are similar to folate; therefore, the Architectfolate assay cannot be used for patients using these drugs. Blood 06/06/2025 3:00 PM EDT 06/06/2025 3:03 PM EDT Marjorie Bradford MD LAB BLOOD ORDERABLES Final Resul t Performing Organization Address [facility] Co de Phone Number [facility] [address] [place] [phone] * Iron And Total Iron Binding Capacity (06/06/2025 3:00 PM EDT) Iron 61 30 - 160 mcg/dL [facility] Total Iron Binding Capacity 246 228 - 428 mcg/dL [facility] Percent Iron Saturation 25 15 - 50 % [facility] Unsaturated Iron Binding 185 ug/dL [facility] Blood Venous blood specimen / Unknown 06/06/2025 3:00 PM EDT 06/06/2025 3:03 PM EDT Marjorie Bradford MD LAB BLOOD ORDERABLES Final Resul t Performing Organization Address [facility] de Phone Number [facility] [address] [place] [phone] * Reticulocyte Count (06/06/2025 3:00 PM EDT) Reticulocytes Absolute 0.060 0.026 - 0.095 X10*6/uL [facility] Immature Retic Fraction 5.3 3.0 - 15.9 % [facility] Retic HGB Equivalent 32.1 30.0 - 35.0 pg [facility] Reticulocyte Percent 1.5 0.5 - 1.8 % [facility] Blood Venous blood specimen / Unknown 06/06/2025 3:00 PM EDT 06/06/2025 3:03 PM EDT Marjorie Bradford MD LAB BLOOD ORDERABLES Final Resul t Performing Organization Address [facility]/ZIP Co de Phone Number [facility] [address] [place] [phone] * Ferritin (06/06/2025 3:00 PM EDT) Ferritin 24 10 - 250 ng/mL [facility] Blood Venous blood specimen / Unknown 06/06/2025 3:00 PM EDT 06/06/2025 3:03 PM EDT Marjorie Bradford MD LAB BLOOD ORDERABLES Final Resul t Performing Organization Address [facility] Co de Phone Number [facility] [address] [place] [phone] * Vitamin D, 25-Hydroxy, Total, Immunoassay (06/02/2025 3:22 PM EDT) Vitamin D 25-OH Total 32.4 >30 ng/mL [facility] Comment: Health Based Reference Values*< 20 ng/mL Dsomerzbw70-49 ng/mL Insufficient> 30 ng/mL Sufficient*Randall CLARKE. N [...] ORDERABLES Final Resul t Performing Organization Address [facility] Co de Phone Number [facility] [address] [place] [phone] * (ABNORMAL) Lipid Panel with Reflex to Direct LDL (06/02/2025 3:22 PM EDT) Triglycerides 94 <150 mg/dL [facility] Comment:Desirable Triglyceri de: less than 150 mg/dLBorderline High Triglyceride 150-199 mg/dLHigh Triglyceride: 200-499 mg/dLVery High Triglyceride: greater than or equal to 5OO mg/dL Cholesterol 190 <200 mg/dL [facility] Comment:Desirable Cholestero l: less than 200 mg/dLBorderline High Cholesterol: 200-239 mg/dLHigh Cholesterol: greater than 239 mg/dL LDL Cholesterol Calculated 119(H) <100 mg/dL [facility] Comment:Desirable LDL: less than 100 mg/dLNear Optimal/Above Optimal LDL: 110- 129 mg/dLBorderline High LDL: 130-159 mg/dLHigh LDL: 160-189 mg/dLVery High LDL: greater than or equal to 190 mg/dL HDL Cholesterol 53 >40 mg/dL [facility] Comment:Desirable HDL: great er than 40 mg/dL Note: This HDL assay may give artificially low results in patients with liver disease. Blood 06/02/2025 3:22 PM EDT 06/02/2025 4:27 PM EDT Marjorie Bradford MD LAB BLOOD ORDERABLES Final Resul t Performing Organization Address [facility] Co de Phone Number [facility] [address] [place] [phone] * (ABNORMAL) CBC auto differential (06/02/2025 3:22 PM EDT) White Blood Count 6.9 4.8 - 10.8 X10*3/uL [facility] Red Blood Count 3.97(L) 4.20 - 5.50 X10*6/uL [facility] Hemoglobin 11.6(L) 12.0 - 16.0 g/dl [facility] Hematocrit 34.8(L) 37.0 - 47.0 % [facility] Mean Corpuscular Volume 87.7 80.0 - 98.0 fL [facility] Mean Corpuscular Hemoglobin 29.2 27.0 - 33.0 pg [facility] Mean Corpuscular HGB Conc 33.3 31.0 - 35.0 g/dl [facility] Red Cell Distribution Width 13.1 11.0 - 16.0 % [facility] Platelet Count 207 160 - 400 X10*3/uL [facility] Mean Platelet Volume 9.7 9.4 - 12.3 fL [facility] Neutrophils Percent Auto 62.9 45 - 73 % [facility] Imm Gran Pct Auto 0.4 0.0 - 0.4 % [facility] Lymphocytes Percent Auto 28.4 20 - 40 % [facility] Monocytes Percent Auto 6.2 2 - 11 % [facility] Eosinophils Percent Auto 1.2 0 - 4 % [facility] Basophils Percent Auto 0.9 0 - 2 % [facility] NRBC Pct Auto 0.0 0.0 - 0.2 /100WBC [facility] Neutrophils Absolute Auto 4.4 2.0 - 8.3 x10*3/uL [facility] Imm Gran Abs Auto 0.03 0.00 - 0.03 X10*3/uL [facility] Lymphocytes Absolute Auto 2.0 1.2 - 4.9 X10*3/uL [facility] Monocytes Absolute Auto 0.4 0.1 - 1.2 X10*3/uL [facility] Eosinophils Absolute Auto 0.1 0.0 - 0.4 X10*3/uL [facility] Basophils Absolute Auto 0.1 0.0 - 0.2 X10*3/uL [facility] NRBC Abs Auto 0.000 0.0 - 0.012 X10*3/uL [facility] Blood Venous blood specimen / Unknown 06/02/2025 3:22 PM EDT 06/02/2025 4:27 PM EDT Marjorie Bradford MD LAB BLOOD ORDERABLES Final Resul t Performing Organization Address [facility] Co de Phone Number [facility] [address] [place] [phone] * Partial Thromboplastin Time, Activated (APTT) (06/02/2025 3:22 PM EDT) Partial Thromboplastin Time 31.5 26.7 - 34.1 SEC [facility] Blood Venous blood specimen / Unknown 06/02/2025 3:22 PM EDT 06/02/2025 4:27 PM EDT Marjorie Bradford MD LAB BLOOD ORDERABLES Final Resul t Performing Organization Address [facility] de Phone Number [facility] [address] [place] [phone] * Prothrombin Time-INR (06/02/2025 3:22 PM EDT) Prothrombin Time 11.7 10.9 - 12.4 SEC [facility] INTERNATIONAL NORM RATIO 1.0 0.9 - 1.1 [facility] Comment:INTERNATIONAL NORMAL IZED RATIO (INR) [...] ORDERABLES Final Resul t Performing Organization Address [facility] Co de Phone Number [facility] [address] [place] [phone] * Hemoglobin A1c (06/02/2025 3:22 PM EDT) Hemoglobin A1c 5.4 <6.0 % [facility] Comment:Hemoglobin A1C Refer ence Range Adults: 4.8 - 6.0 % Non diabetic: < 6.0 % Goal: < 7.0 %Additional Action Suggested: > 8.0 %Note: Hemoglobin A1c results are invalid for patients with abnormal amounts of HbF. Blood transfusions may impact the HbA1c concentration in the patient sample. Estimated Average Glucose 108 mg/dL [facility] Comment:eAG = Estimated ave rage glucose which is %A1C expressed asaverage glucose, using the formula of the O7H-OuozgniLnsemdz Glucose study (ADAG), Diabetes Care, Vol.31,#8,2007 Blood Venous blood specimen / Unknown 06/02/2025 3:22 PM EDT 06/02/2025 4:27 PM EDT Marjorie Bradford MD LAB BLOOD ORDERABLES Final Resul t Performing Organization Address [facility]/ZIP Co de Phone Number [facility] [address] [place] [phone] * HPV DNA, Low/High Risk (05/27/2025 9:15 AM EDT) HPV High Risk Negative Negative [facility] HPV Genotype 16 Negative Negative [facility] HPV Genotype 18 Negative Negative [facility] Comment:HPV testing performe d at [facility] (CLIA#[id number]), [address] [place] [address].Testing for HPV was performed using the [employer] IGG0system. The presence of HPV in the female genital tract isassociated with a number of diseases, including cervicalcarcinoma. The HPV DNA high risk pool tests for HPV 31, 33,35, 39, 45, 51, 52, 56, 58, 59, 66 and 68. The testing forHPV 16 and 18 genotypes has also been performed. A positiveresult indicates detection of nucleic acid sequences fromone or more subtypes, whereas a negative result indicatessuch sequences were not detected. 05/27/2025 9:15 AM EDT 05/28/2025 8:14 AM EDT us Generic External Data Provider LAB BLOOD ORDERAB LES Final Result Performing Organization Address City/State/[facility] Co de Phone Number [facility] [address] [place] [phone] * Pap Smear (05/27/2025 9:15 AM EDT) 05/27/2025 9:15 AM EDT 05/28/2025 8:14 AM EDT Narrative [facility] - 05/30/2025 10:12 AM EDT ----- ------- Name: Alexia Hazel Age/Sex: 44/F : 1980 Unit#: [id number] Attend Dr: Corina Titus CNM Re05/27/25 Status: DEP REF Location: [facility] Disch: ----- ------- SPEC : [id number] RECD: 05/28/25 STATUS: ROBERTA PICKEIRNG NUM: [id number] DOMINGA: 05/27/[address] [facility] [address]: Corina Titus CNM ENTERED: 05/28/25 SP TYPE: Pap Smr OT DR: Marjorie Bradford MD ORDERED: Pap Smear Interpretation Satisfactory for evaluation. Negative for intraepithelial lesion or malignancy. HPV High Risk: Negative HPV Genotyping 16: Negative HPV Genotyping 18: Negative Clinical Information LMP: Unknown date Previous PAP test: Unknown date, WNL Material Received ThinPrep-Cervical PAP Disclaimer As of August 07, 2024, the technical services to include automated prescreening performed by the ThinPrep Imaging System, PAP screening and HPV testing will be performed at [facility] (CLIA #[id number]), [address] [place] [address]. Testing for HPV was performed using the Freddy RUIZ 6800 system. The presence of HPV in the female genital tract is associated with a number of diseases, including cervical carcinoma. The HPV DNA high risk pool tests for HPV 31, 33, 35, 39, 45, 51, 52, 56, 58, 59, 66 and 68. The testing for HPV 16 and 18 genotypes has also been performed. A positive result indicates detection of nucleic acid sequences from one or more subtypes, whereas a negative result indicates such sequences were not detected. All professional services are performed by [facility] ([address] [place] [id number]; ; CLIA #[id number]). The PAP Test is a screening procedure with the inherent possibility of both false negative and false positive results. Results should be interpreted in the context of historic and current clinical findings. Reliability of the PAP Test is enhanced by performing the test on a regular repetitive basis. CONTINUED ON NEXT PAGE ----- ------- Name: Alexia Hazel Age/Sex: 44/F : 1980 Unit#: [id number] Attend Dr: Corina Titus CNM Re05/27/25 Status: DEP REF Location: HO.LNP Disch: ----- ------- SPEC : [id number] RECD: 05/28/25 STATUS: ROBERTA PICKERING NUM: [id number] DOMINGA: 05/27/[address] [facility] [address]: Corina Titus CNM ENTERED: 05/28/25 SP TYPE: Pap Smr OTHR DR: Marjorie Bradford MD ORDERED: Pap Smear Copies To: Corina Titus CNM [facility] Services [address] [place] [address] [place] [phone] Marjorie Bradford MD [address] [address] ----- ------- Signed (signature on file) YASMINE Bond ([facility]) 05/30/25 1012 ----- ------- END OF REPORT us Generic External Data Provider LAB CYTOLOGY ZAIDMaryanne GARCIA Final Result [facility] [address] [place] [address] [phone] * BI Mammogram Diagnostic Tomosynthesis Bilateral (08/08/2024 2:16 PM EDT) Anatomical Region Laterality Modality Breast Bilateral Mammography 08/08/2024 2:16 PM EDT Narrative 08/08/2024 3:03 PM EDT [facility]'s [address] [place] [address] Mammography Report Signed Patient: Alexia Hazel MR#: [id number] 45 : 1980 Acct:[id number] Age/Sex: 44 / F ADM Date: 08/08/24 Loc: .MAMMO Attending Dr: Marjorie Bradford MD Ordering Physician: Marjorie Bradford MD Results: 1Negative Date of Service: 08/08/24 Follow Up: 1 Year From [facility] Mammogram Procedure(s): MM tomosynthesis diagnostic BI Accession Number(s): [id number] cc: Marjorie Bradford MD EXAMINATION: MM DIAGNOSTIC DIGITAL BREAST TOMOSYNTHESIS, BILATERAL CLINICAL INFORMATION: Diagnostic bilateral; evaluate one view asymmetry right MLO view superior aspect middle depth seen on screening exam. Also evaluate left focal asymmetric density upper inner left breast posterior depth, just posterior to a benign biopsy clip. COMPARISON: Mammography: Screening mammography 06/05/2024, and exams dating back to 2019. TECHNIQUE: Digital breast tomosynthesis is performed in the following views: Full field 3-D digital right ML view, as well as a spot compression 3-D right MLO view, and 3-D spot compression left CC and MLO views. Computer-aided diagnosis was used for this study. FINDINGS: The breasts are heterogeneously dense, which may obscure small masses (ACR BI-RADS breast composition Category c). RIGHT BREAST: Diagnostic views demonstrate no persistent asymmetry in the superior right MLO view. Finding effaces on spot compression view. Findings are consistent with superimposition artifact of overlapping heterogeneously dense breast tissues. LEFT BREAST: Focal asymmetry in the upper inner left breast posterior depth, just posterior to a biopsy clip (benign) does not persist on spot compression views. Finding effaces on both views. Findings are consistent with superimposition artifact of overlapping heterogeneously dense breast tissues. No masses, areas of architectural distortion, persistent asymmetries, or abnormal calcifications identified in either breast. MM/MM tomosynthesis diagnostic BI IMPRESSION: -There are no persistent findings suspicious for malignancy in either breast. -Both areas of concern effaced completely on diagnostic views, and are consistent with superimposition artifact of normal heterogeneously dense tissue. -Recommend the patient resume routine annual screening mammography. ASSESSMENT: BI-RADS BI-RADS 1 - Negative RECOMMENDATION: 1 year F/U Results were provided to the patient at time of visit by the technologist. This patient's information was entered into a reminder system with a target due date for their next mammogram. Electronically signed by: Jamal Stevenson MD 08/08/2024 03:00 PM EDT Dictated By: Jamal Stevenson MD Signed By: <Electronically signed by Jamal Stevenson MD in OV> 08/08/24 1500 DD/ 1416 TD/TT: 08/08/24 1440 Defense Attorney: Procedure Note Donotuseinterpreter, Image - 08/08/[facility] [address] [place] [address] Mammography Report Signed Patient: Williams Hazel#: [id number] 45 : 1980Acct:[id number] Age/Sex: 44 / FADM Date: 08/08/24 Loc: HO.MAMMO Attending Dr: Marjorie Bradford MD Ordering Physician: Marjorie Bradford MDResults: 1Negative Date of Service: 08/08/24Follow Up: 1 Year From Orig inal Mammogram Procedure(s): MM tomosynthesis diagnostic BI Accession Number(s): [id number] cc: Marjorie Bradford MD EXAMINATION: MM DIAGNOSTIC DIGITAL BREAST TOMOSYNTHESIS, BILATERAL CLINICAL INFORMATION: Diagnostic bilateral; evaluate one view asymmetry right MLO view superior aspect middle depth seen on screening exam. Also evaluate left focal asymmetric density upper inner left breast posterior depth, just posterior to a benign biopsy clip. COMPARISON: Mammography: Screening mammography 06/05/2024, and exams dating back to 2019. TECHNIQUE: Digital breast tomosynthesis is performed in the following views: Full field 3-D digital right ML view, as well as a spot compression 3-D right MLO view, and 3-D spot compression left CC and MLO views. Computer-aided diagnosis was used for this study. FINDINGS: The breasts are heterogeneously dense, which may obscure small masses (ACR BI-RADS breast composition Category c). RIGHT BREAST: Diagnostic views demonstrate no persistent asymmetry in the superior right MLO view. Finding effaces on spot compression view. Findings are consistent with superimposition artifact of overlapping heterogeneously dense breast tissues. LEFT BREAST: Focal asymmetry in the upper inner left breast posterior depth, just posterior to a biopsy clip (benign) does not persist on spot compression views. Finding effaces on both views. Findings are consistent with superimposition artifact of overlapping heterogeneously dense breast tissues. No masses, areas of architectural distortion, persistent asymmetries, or abnormal calcifications identified in either breast. MM/MM tomosynthesis diagnostic BI IMPRESSION: -There are no persistent findings suspicious for malignancy in either breast. -Both areas of concern effaced completely on diagnostic views, and are consistent with superimposition artifact of normal heterogeneously dense tissue. -Recommend the patient resume routine annual screening mammography. ASSESSMENT: BI-RADS BI-RADS 1 - Negative RECOMMENDATION: 1 year F/U Results were provided to the patient at time of visit by the technologist. This patient's information was entered into a reminder system with a target due date for their next mammogram. Electronically signed by: Jamal Stevenson MD 08/08/2024 03:00 PM EDT Dictated By: Jamal Stevenson MD Signed By: <Electronically signed by Jamal Stevenson MD in OV> 08/08/24 1500 DD/ 1416 TD/TT: 08/08/24 1440 Defense Attorney: Marjorie Bradford MD [facility] BI PROCEDURES Edited Result - Final * HIV AB/AG (09/14/2020 10:35 AM EST) [facility] HIV AB/AG Nonreactive Nonreactive [facility] Comment: HIV-1 p24 Ag and/or HIV-1/HIV-2 Ab not detected. A test result that is nonreactive does not exclude the possibility of exposure to or infection with HIV-1 and/or HIV-2. Nonreactive results in this assay for individuals with prior exposure to HIV-1 and/or HIV-2 may be due to antigen and antibody levels that are below the limit of detection of this assay. The [employer] Owner Operator HIV Ag/Ab Combo assay result and supplemental assay results should be interpreted in conjunction with the patient's clinical presentation, history and other laboratory results. If the results are inconsistent with clinical evidence, additional testing is suggested to confirm the result. 09/14/2020 10:3 5 AM EST Historical Provider HISTORICAL/NON ORDERABLE LABS Final Result [facility] Anywhere [address] from Last 3 Months or Most Recently Relevant to Health Maintenance Insurance [facility] HSN FULL (MEDICAID) DENTAL-[facility] MEDICAID LIMITED ADULT Care Teams Metallurgical Analyst Relationship Specialty Start Date End Date Marjorie Bradford MD [address] [place] [address] PCP - General Family Medicine 11/17/22
--- OUTSIDE RECORDS SUMMARY | 2025-06-11 14:48 | XMS_ITS | Encounter Summary ---
Author Organization [employer] Address [address] [facility] 7t [place] [address] Care Team Providers Care Hat And Cap Sewer Name Role Phone Marjorie Bradford MD Primary Care Provider Encounter Details Date Type Department Care Team ([facility] Contact Info) Description 12/15/2022 Abstract [facility] ADULT DENTAL [address] [place] [address] Frederick Maguire, PRICILA [address] [place] [address] Social History Tobacco Use Types Packs/Day Years Used Date Smoking Tobacco: Never Passive Smoke Exposure: Never Smokeless Tobacco: Never Alcohol Use Standard Drinks/Week Comments Never 0 (1 standard drink = 0.6 oz pur e alcohol) Comments Unknown Sex and Gender Information Value Date Recorded Sex Assigned at Female 08/15/2022 10:32 AM EDT Legal Sex Female 10:32 AM EDT Gender Identity Female 08/15/2022 10:32 AM EDT Sexual Orientation Straight 09/27/2022 6: 59 PM EST COVID-19 Exposure Response Date Recorded In the last 10 days, have yo u been in contact with someone who was confirmed or suspected to have Coronavirus/COVID-19? No / Unsure 12/06/2022 2:54 PM EST documented as of this encounter Plan of Treatment Upcoming Encounters Date Type Department Care Team ([facility] Contact Info) Description 07/14/2025 4:00 PM EDT Office Visit [facility] DENTAL [address] [place], [place] [phone] Tosin Becerril [address] [place] [address] documented as of this encounter Visit Diagnoses Not on filedocumented in this encounter Care Teams Hat And Cap Sewer Relationship Specialty Start Date End Date Marjorie Bradford MD [address] [place] [address] PCP - General Family Medicine 11/17/22 documented as of this encounter
--- OUTSIDE RECORDS SUMMARY | 2025-06-11 14:48 | XMS_ITS | Encounter Summary ---
Author Organization [employer] Address [address] [facility] 7t [place] [address] Care Team Providers Care Lock And Dam Equipment Repairer Name Role Phone Marjorie Bradford MD Primary Care Provider [phone] Encounter Details Date Type Department Care Team ([facility] st Contact Info) Description 08/09/2024 Abstract [facility] MEDICINE [address] [place], [place] [phone] Leslie Gamez [place] Social History Tobacco Use [...] Description 07/14/2025 4:00 PM EDT Office Visit [facility] DENTAL [address] [place] [phone] Tosin Becerril [address] [place], [place] [phone] documented as of this encounter Procedures Procedure [...] documented as of this encounter Care Teams Lock And Dam Equipment Repairer Relationship Specialty Start Date End Date Marjorie Bradford MD [address] [place] [phone] PCP - General Family Medicine 11/17/22 documented as of this encounter
--- OUTSIDE RECORDS SUMMARY | 2025-06-11 14:48 | XMS_ITS | Encounter Summary ---
Author Organization [employer] Address [address] [facility] 7t [place] [address] Care Team Providers Care Podiatrist Name Role Phone Marjorie Bradford MD Primary Care Provider [phone] Reason for Visit * Reason Onset Date Comments Appointment Request 04/28/2025 Encounter Details Date Type Department Care Team ([facility] st Contact Info) Description 04/28/2025 Telephone [facility] MEDICINE [address] [place], [place] [phone] Marjorie Bradford MD [address] [place] [address] Appointment Request Social History Tobacco Use Types Packs/Day Years [...] with others, in a hotel, in a skilled nursing, living outside on the street, on a [...] encounter Miscellaneous Notes * Telephone Encounter - José Blancas - 04/28/2025 12:41 PM EDT Tc from pt requesting to schedule PE apt , web content writer unavailable to schedule due to provider limited schedule. Contact pt at [phone] documented in this encounter Plan of Treatment Upcoming Encounters Date Type Department Care Team (Late st Contact Info) Description 07/14/2025 4:00 PM EDT Office Visit [facility] DENTAL [address] [place] [address] Tosin Becerril [address] [place] [address] documented as of this encounter Visit Diagnoses Not on filedocumented in this encounter Additional Health Concerns Assessment Noted Time PHQ-9 Depression Total Score: 0 02/29/20 23 11:17 AM EDT documented as of this encounter Care Teams Podiatrist Relationship Specialty Start Date End Date Marjorie Bradford MD [address] [place] [address] PCP - General Family Medicine 11/17/22 documented as of this encounter
--- OUTSIDE RECORDS SUMMARY | 2025-06-11 14:48 | XMS_ITS | Encounter Summary ---
Author Organization [employer] Address [address] [facility] 7t [place] [address] Care Team Providers Care Radiology Scheduler Name Role Phone Marjorie Bradford MD Primary Care Provider [phone] Reason for Visit * Reason Onset Date Comments Appointment Request 07/19/2024 Encounter Details Date Type Department Care Team ([facility] st Contact Info) Description 07/19/2024 Telephone [facility] MEDICINE [address] [place] [address] Marjorie Bradford MD [address] [place] [address] Appointment Request Social History Tobacco Use Types [...] with others, in a hotel, in a assisted, living outside on the street, on a [...] encounter Miscellaneous Notes * Telephone Encounter - Jonas Roque - 07/19/2024 3:36 PM EDT Tc from pt requesting to reschedule PE for 07/25 stating she won't be able to make it that day in the morning. Please contact pt at [phone]. documented in this encounter Plan of Treatment Upcoming Encounters Date Type Department Care Team (Late st Contact Info) Description 07/14/2025 4:00 PM EDT Office Visit [facility] DENTAL [address] [place] [address] Tosin Becerril [address] [place] [address] documented as of this encounter Visit Diagnoses Not on filedocumented in this encounter Additional Health Concerns Assessment Noted Time PHQ-9 Depression Total Score: 0 02/29/20 23 11:17 AM EDT documented as of this encounter Care Teams Radiology Scheduler Relationship Specialty Start Date End Date Marjorie Bradford MD [address] [place] [address] PCP - General Family Medicine 11/17/22 documented as of this encounter
--- OUTSIDE RECORDS SUMMARY | 2025-06-11 14:48 | XMS_ITS | Encounter Summary ---
Author Organization [employer] Address [address] [facility] 7t [place] [address] Care Team Providers Care Gamemaster Name Role Phone Marjorie Bradford MD Primary Care Provider [phone] Encounter Details Date Type Department Care Team ([facility] st Contact Info) Description 06/05/2025 Orders Only [facility] MEDICINE [address] [place], [place] [phone] Marjorie Bradford MD [address] [place] [address] Anemia, unspecified type (Primary Dx) Social History Tobacco Use Types Packs/Day Years [...] Description 07/14/2025 4:00 PM EDT Office Visit [facility] DENTAL [address] [place] [address] Tosin Becerril [address] [place] [phone] documented as of this encounter Procedures Procedure Name Priority Date/Time Associated Diagnosis Comments VITAMIN B12/FOLATE, SERUM PANEL Routine 06/06/2025 3:00 PM EDT Anemia, unspecified type IRON AND TOTAL IRON BINDING CAPACITY Routine 06/06/2025 3:00 PM EDT Anemia, unspecified type RETICULOCYTE COUNT Routine 06/06/2025 3: 00 PM EDT Anemia, unspecified type FERRITIN Routine 06/06/2025 3:00 PM EDT Anemia, unspecified type documented in this encounter Results * Iron And Total Iron Binding Capacity (06/06/2025 3:00 PM EDT) Iron 61 30 - 160 mcg/dL [facility] Total Iron Binding Capacity 246 228 - 428 mcg/dL [facility] Percent Iron Saturation 25 15 - 50 % [facility] Unsaturated Iron Binding 185 ug/dL [facility] Blood Venous blood specimen / Unknown 06/06/2025 3:00 PM EDT 06/06/2025 3:03 PM EDT us Marjorie Bradford MD LAB BLOOD ORDERABLES Final Resul t Performing Organization Address [facility] Co de Phone Number [facility] [address] [place] [phone] * Vitamin B12 (Cobalamin) and Folate Panel, Serum (06/06/2025 3:00 PM EDT) Vitamin B12 642 200 - 900 pg/mL [facility] Comment:NORMAL 200-900 PG/M L INDETERMINATE 160-199 PG/ML DEFICIENT < 160 PG/ML Folate 12.9 > or = 4.0 ng/mL [facility] Comment:Reference Values:> o r = 4.0 ng/mL< 4.0 ng/mL suggests folate deficiency Methotrexate, aminopterin and folinic acid(leucovorin) are chemotherapeutic agents whose molecularstructures are similar to folate; therefore, the Architectfolate assay cannot be used for patients using these drugs. Blood 06/06/2025 3:00 PM EDT 06/06/2025 3:03 PM EDT us Marjorie Bradford MD LAB BLOOD ORDERABLES Final Resul t Performing Organization Address [facility] Co de Phone Number [facility] [address] [place] [phone] * Reticulocyte Count (06/06/2025 3:00 PM EDT) Pathologist [facility] Reticulocytes Absolute 0.060 0.026 - 0.095 X10*6/uL [facility] Immature Retic Fraction 5.3 3.0 - 15.9 % [facility] Retic HGB Equivalent 32.1 30.0 - 35.0 pg [facility] Reticulocyte Percent 1.5 0.5 - 1.8 % [facility] Blood Venous blood specimen / Unknown 06/06/2025 3:00 PM EDT 06/06/2025 3:03 PM EDT us Marjorie Bradford MD LAB BLOOD ORDERABLES Final Resul t Performing Organization Address [facility]/ZIP Co de Phone Number [facility] [address] [place] [phone] * Ferritin (06/06/2025 3:00 PM EDT) Ferritin 24 10 - 250 ng/mL [facility] Blood Venous blood specimen / Unknown 06/06/2025 3:00 PM EDT 06/06/2025 3:03 PM EDT Marjorie Bradford MD LAB BLOOD ORDERABLES Final Resul t Performing Organization Address [facility] Co de Phone Number [facility] [address] [place] [phone] documented in this encounter Visit Diagnoses Diagnosis Anemia, unspecified type- Primary documented in this encounter Additional Health Concerns Assessment Noted Time PHQ-9 Depression Total Score: 0 06/03/20 25 1:28 PM EDT documented as of this encounter Care Teams Gamemaster Relationship Specialty Start Date End Date Marjorie Bradford MD [address] [place] [phone] PCP - General Family Medicine 11/17/22 documented as of this encounter
--- OUTSIDE RECORDS SUMMARY | 2025-06-11 14:48 | XMS_ITS | Encounter Summary ---
Author Organization [employer] Address [address] [facility] 7t [place] [address] Care Team Providers Care Flute Polisher Name Role Phone Marjorie Bradford MD Primary Care Provider [phone] Encounter Details Date Type Department Care Team ([facility] Contact Info) Description 10/03/2022 Abstract [facility] ADULT DENTAL [address] [place] [address] Kleber Trevizo, PRICILA [address] [place] [address] Social History Tobacco Use Types Packs/Day Years [...] suspected to have Coronavirus/COVID-19? No / Unsure 09/22/2022 2:41 PM EST documented as of this encounter Plan of Treatment Upcoming Encounters Date Type Department Care Team ([facility] Contact Info) Description 07/14/2025 4:00 PM EDT Office Visit [facility] [address] [place], [place] [phone] Tosin Becerril [address] [place] [phone] documented as of this encounter Visit Diagnoses Not on filedocumented in this encounter Care Teams Flute Polisher Relationship Specialty Start Date End Date Marjorie Bradford MD [address] [place] [phone] PCP - General Family Medicine 11/17/22 documented as of this encounter
--- OUTSIDE RECORDS SUMMARY | 2025-06-11 14:48 | XMS_ITS | Encounter Summary ---
Author Organization [employer] Address [address] [facility] 7t [place] [address] Care Team Providers Care Image Scientist Name Role Phone Marjorie Bradford MD Primary Care Provider [phone] Encounter Details Date Type Department Care Team ([facility] st Contact Info) Description 05/30/2025 Results Follow-Up [facility] MEDICINE [address] [place] [address] Marjorie Bradford MD [address] [place] [address] Pap Smear Social History Tobacco Use Types Packs/Day Years [...] Description 07/14/2025 4:00 PM EDT Office Visit [facility] D[facility]AL [address] [place] [address] Tosin Becerril [address] [place] [address] documented as of this encounter Visit Diagnoses Not on filedocumented in this encounter Additional Health Concerns Assessment Noted Time PHQ-9 Depression Total Score: 0 02/29/20 23 11:17 AM EDT documented as of this encounter Care Teams Image Scientist Relationship Specialty Start Date End Date Marjorie Bradford MD [address] [place] [phone] PCP - General Family Medicine 11/17/22 documented as of this encounter
--- OUTSIDE RECORDS SUMMARY | 2025-06-11 14:48 | XMS_ITS | Clinical Summary ---
Author Organization [facility] Address [address] [place] [address] Care Team Providers Care Junior Programmer Analyst Name Role Phone Unavailable Primary Care Provider [...]
--- OUTSIDE RECORDS SUMMARY | 2025-06-11 14:48 | XMS_ITS | Encounter Summary ---
Author Organization [employer] Address [address] [facility] [address] [place] [address] Care Team Providers Care Medical Accountant Name Role Phone Marjorie Bradford MD Primary Care Provider [phone] Encounter Details Date Type Department Care Team ([facility] st Contact Info) Description 06/06/2025 Orders Only [facility] MED[facility]INE [address] [place], [place] [phone] Marjorie Bradford MD [address] [place] [address] Anemia, unspecified type (Primary Dx) Social History [...] Description 07/14/2025 4:00 PM EDT Office Visit [facility] [address] [place] [address] [phone] Tosin Becerril [address] [place] [place], [place] [phone] Scheduled Orders Name Type Priority Associated Diagnoses Orde r Schedule CBC auto differential Lab Routine Anemia, unspecified type Expected: 09/06/2025 (Approximate), Expires: 06/06/2026 Ferritin Lab Routine Anemia, unspecified type Expected: 09/06/2025 (Approximate), Expires: 06/06/2026 Iron And Total Iron Binding Capacity Lab Routine Anemia, unspecified type Expected: 09/06/2025 (Approximate), Expires: 06/06/2026 documented as of this encounter Visit Diagnoses Diagnosis Anemia, unspecified type- Primary documented in this encounter Additional Health Concerns Assessment Noted Time PHQ-9 Depression Total Score: 0 06/03/20 25 1:28 PM EDT documented as of this encounter Care Teams Medical Accountant Relationship Specialty Start Date End Date Marjorie Bradford MD [address] [place] [id number] PCP - General Family Medicine 11/17/22 documented as of this encounter
--- OUTSIDE RECORDS SUMMARY | 2025-06-11 14:48 | XMS_ITS | Encounter Summary ---
Author Organization [facility] Address [address] [place] [address] 7[address] [place] [address] Care Team Providers Care Bartender Name Role Phone Marjorie Bradford MD Primary Care Provider [phone] Encounter Details Date Type Department Care Team (Latest Contact Info) Description 10/31/2019 Abstract [facility] CONVERSIONS Dental, Provider, DDS Social History Tobacco Use Types Packs/Day Years [...] Description 07/14/2025 4:00 PM EDT Office Visit [facility] [address] [place], [place] [phone] Eulogio Becerriline [address] [place], [place] [phone] documented as of this encounter Visit Diagnoses Not on filedocumented in this encounter Care Teams Bartender Relationship Specialty Start Date End Date Marjorie Bradford MD [address] [place] [id number] PCP - General Family Medicine 11/17/22 documented as of this encounter
== END 2025-06-11 13:56 | disposition home or self-care (01) ==
LOC: HO.MAMMO 13:55
PROVIDERS: PCP Family Medicine; Visit Provider Family Medicine
DX: Z12.31 Encounter for screening mammogram for malignant neoplasm of breast (principal)
CPT/HCPCS: 77063; 77067